=== PATIENT | male | born 1940 | race African-American/Black ===

== ENCOUNTER 2017-07-08 21:52 | Emergency (ER) | payer MEDICARE, OTHER ==
[~2017-07-08] VITALS: Ht 165.1 cm; Wt 95.3 kg
[~2017-07-08 21:52] MED LIST: ADALAT CC60 MG PO; ALLOPURINOL; ALLOPURINOL 30300 M1 PO; AMITIZA8 MCG PO; AMLODIPINE BESY10 MG PO; AMOXICILLIN875 MG PO; CEFDINIR300 MG PO; CLEOCIN HCL300 MG PO; COLCHICINE 0.60.6 M1 PO; COLCHICINE0.6 MG PO; COLCRYS 0.6 MG0.6 MG PO; COZAAR 50 MG TA50 M1 PO; DILAUDID 4 MG TA4 M1 PO; DILAUDID2 M1 PO; FLEXERIL PO; HYCET 7.5 MG-3473 ML PO; HYDROCODON-ACE1 EAC2 PO; HYDROCODONE-APA1 TA1 PO; HYDROCODONE-APA10 ML PO; IBUPROFEN 800800 M1 PO; INDOMETHACIN 2525 MG PO; INDOMETHACIN 5050 MG PO; INDOMETHACIN SR75 M1 PO; KEFLEX500 MG PO; KLOR-CON 1010 MEQ PO; LASIX 40 MG TAB40 M2 PO; LIDODERM 5%1 PATC1 TRANSDERM; LISINOPRIL-HCT1 EACH PO; MEDROL DOSPAK21 TAB PO; MEDROLDOSEPACK PO; NASONEX17 GM NS; NEURONTIN 300300 M1 PO; NORCO 10-325 T1 EACH PO; NORCO 5-325 TA1 EACH PO; NORFLEX100 MG PO; OXYCODONE HCL 55 MG PO; OXYCODONE-APAP1 EAC6 PO; PERCOCET 5-3251 EACH PO; PREDNISONE 10 M10 M1 PO; PREDNISONE 10 M10 MG PO; PREDNISONE 20 M20 M1 PO; PREDNISONE 20 M20 MG PO; PRINZIDE 20-121 EACH PO; TAMSULOSIN HCL0.4 M1 PO; ULORIC40 MG PO; ULORIC80 MG PO; ZESTRIL20 MG PO; [UNRECOGNIZED DRUG - OTHER]
[2017-07-08] MEDS ORDERED: LISINOPRIL20 MG PO (22:14)
[2017-07-08] MEDS ORDERED: PROTONIX40 M1 PO (22:15)
[2017-07-08 22:33] LABS: ABSOLUTE NEUTROPHILS 5.8 thou/uL (1.4-8.2); BASOPHILS 0.5 % (0.0-2.0); EOSINOPHILS 3.1 % (0.0-3.0); HEMATOCRIT 35.8 % (42.0-52.0); HEMOGLOBIN 12.1 gm/dL (14.0-18.0); LYMPHOCYTES 21.7 % (24.0-44.0); MCH 28.5 pg (26.0-34.0); MCHC 33.8 g/dL (28.0-37.0); MCV 84.3 fL (80.0-100.0); MONOCYTES 8.9 % (1.0-8.0); PLATELET COUNT 270 thou/uL (150-400); POLYS 65.8 % (36.0-66.0); RBC 4.24 mil/uL (4.50-6.00); RDW 15.4 % (10.5-14.5); WBC 8.9 thou/uL (4.0-11.0)
[2017-07-08 22:40] LABS: CALCIUM 9.3 mg/dL (8.5-10.1); CREATININE 1.4 mg/dL (0.7-1.3); POTASSIUM 3.8 mmol/L (3.5-5.1)
[2017-07-08 22:46] LABS: ALBUMIN 3.6 g/dL (3.4-5.0); TOTAL BILIRUBIN 0.7 mg/dL (<0.1-1.0); TOTAL PROTEIN 8.4 g/dL (6.4-8.2); URIC ACID* 7.6 mg/dL (2.6-7.2)
[2017-07-08] MEDS ORDERED: INDOMETHACIN 2525 MG PO (22:58)
[2017-07-08] MEDS ORDERED: HYDROCODONE-AP1 EAC6 PO (22:58)
[2017-07-08] MEDS ORDERED: PREDNISONE 20 M20 MG PO (22:58)
[2017-07-08] MEDS ORDERED: COLCHICINE0.6 MG PO (22:58)
[2017-07-08 23:33] VITALS: BP 163/82
[2017-12-23] MEDS ORDERED: PREDNISONE 20 M20 MG PO (14:14)
[2017-12-23] MEDS ORDERED: NORCO 5-325 TA1 EACH PO (14:14)
[2017-12-23] MEDS ORDERED: COLCHICINE0.6 MG PO (14:14)
[2017-12-23] MEDS ORDERED: SENNA8.6 MG PO (14:14)
== END 2017-07-08 23:34 | disposition home or self-care (01) ==
LOC: ER 21:52
PROVIDERS: Emergency Medicine
DX: M18.9 Osteoarthritis of first carpometacarpal joint, unspecified (principal); M10.9 Gout, unspecified; G89.29 Other chronic pain; M54.9 Dorsalgia, unspecified; I10 Essential (primary) hypertension

== ENCOUNTER 2017-07-25 17:39 | Emergency (ER) | payer MEDICARE ==
[~2017-07-25] VITALS: Ht 165.1 cm; Wt 99.8 kg
[~2017-07-25 17:39] MED LIST changes: +HYDROCODONE-AP1 EAC6 PO; +LISINOPRIL20 MG PO; +PROTONIX40 M1 PO
[2017-07-25 19:40] VITALS: BP 164/71
== END 2017-07-25 19:41 | disposition home or self-care (01) ==
LOC: ER 17:39
DX: M19.90 Unspecified osteoarthritis, unspecified site (principal); M25.562 Pain in left knee; M54.9 Dorsalgia, unspecified; M10.9 Gout, unspecified; I10 Essential (primary) hypertension

== ENCOUNTER 2017-08-12 16:43 | Emergency (ER) | payer MEDICARE ==
[~2017-08-12] VITALS: Ht 165.1 cm; Wt 99.8 kg
[2017-08-12] MEDS ORDERED: ALLOPURINOL 10100 M1 PO (17:13)
[2017-08-12 18:05] LABS: HEMATOCRIT 34.2 % (42.0-52.0); HEMOGLOBIN 11.4 gm/dL (14.0-18.0); MCH 27.9 pg (26.0-34.0); MCHC 33.2 g/dL (28.0-37.0); RBC 4.07 mil/uL (4.50-6.00); WBC 11.2 thou/uL (4.0-11.0)
[2017-08-12 18:24] LABS: CALCIUM 8.9 mg/dL (8.5-10.1); CREATININE 1.4 mg/dL (0.7-1.3); POTASSIUM 3.2 mmol/L (3.5-5.1)
[2017-08-12 18:30] LABS: ALBUMIN 3.3 g/dL (3.4-5.0); TOTAL BILIRUBIN 0.7 mg/dL (<0.1-1.0); TOTAL PROTEIN 8.2 g/dL (6.4-8.2); URIC ACID* 3.2 mg/dL (2.6-7.2)
[2017-08-12] MEDS ORDERED: INDOMETHACIN 2525 MG PO (20:53)
[2017-08-12] MEDS ORDERED: PREDNISONE 20 M20 MG PO (20:53)
[2017-08-12] MEDS ORDERED: COLCHICINE0.6 MG PO (20:53)
[2017-08-12] MEDS ORDERED: NORCO 10-325 T1 EACH PO (20:53)
[2017-08-12 21:04] VITALS: BP 198/89
== END 2017-08-12 21:08 | disposition home or self-care (01) ==
LOC: ER 16:43
PROVIDERS: Physician Assistant
DX: M10.032 Idiopathic gout, left wrist (principal); I16.0 Hypertensive urgency; Z96.698 Presence of other orthopedic joint implants

== ENCOUNTER 2017-09-29 19:01 | Emergency (ER) | payer MEDICARE ==
[~2017-09-29] VITALS: Ht 167.6 cm; Wt 99.8 kg
[~2017-09-29 19:01] MED LIST changes: +ALLOPURINOL 10100 M1 PO
[2017-09-29] MEDS ORDERED: NORCO 5-325 TA1 EACH PO (21:20)
[2017-09-29 22:01] VITALS: BP 142/76
== END 2017-09-29 22:00 | disposition home or self-care (01) ==
LOC: ER 19:01
DX: M19.011 Primary osteoarthritis, right shoulder (principal); M75.101 Unspecified rotator cuff tear or rupture of right shoulder, not specified as traumatic; R60.0 Localized edema; M10.9 Gout, unspecified; I10 Essential (primary) hypertension; G51.0 Bell's palsy

== ENCOUNTER → 2017-10-15 | Outpatient (CLI) | payer MEDICARE ==
--- NOTE | ~2017-10-15 | 2DMMODE ---
[facility] [employer] [place] [address] 2 D/M-MODE ECHOCARDIOGRAM Name: FREDRICKKI Room #: REG Haley#: [id number] Admission: 10/15/17 Attend Phys: Corey Ortega Discharge: Date of : 44 Date of Service: 10/15/17 1114 Report #: [id number] THIS REPORT FOR: //name// APPROVED REPORT Study performed: 10/15/2017 10:23:23 EXAM: Comprehensive 2D, Doppler, and color-flow Echocardiogram Patient Location: Out-Patient Status: routine BSA: 2.12 HR: 69 bpm BP: 192/102 mmHg Rhythm: NSR/Arrhythmia Other Information Study Quality: Good Indications Murmur, HTN 2D Dimensions RVDd: 40.53 mm LVEF(%): 61.62 (>50%) IVSd: 13.00 (7-11mm) LVOT Diam: 19.75 (18-24mm) LVDd: 48.72 mm PWd: 13.15 (7-11mm) Ascending Ao: 35.45 (22-36mm) LVDs: 32.56 (25-40mm) Aortic Root: 28.85 mm Urban's LVEF: 61.62 % Volumes Left Atrial Volume (Systole) Single Plane 4CH: 91.39 mL Single Plane 2CH: 90.32 mL Aortic Valve AoV Peak Jasper.: 2.43 m/s AO Peak Gr.: 23.56 mmHg LVOT Max P.79 mmHg AO Mean Gr.: 13.14 mmHg AO V2 Mean: 1.74 m/s LVOT Max V: 1.20 m/s AO V2 VTI: 55.98 cm ANDREZ Vmax: 1.52 cm2 Mitral Valve E/A Ratio: 1.2 [facility] [employer] [place] [address] 2 D/M-MODE ECHOCARDIOGRAM Name: KI ALCALA Room #: REG [facility] [id number] Admission: 10/15/17 Attend Phys: Corey Ortega Discharge: Date of : 44 Date of Service: 10/15/17 1114 Report #: [id number] MV Decel. Time: 261.93 ms MV E Max Jasper.: 1.45 m/s MV A Jasper.: 1.20 m/s MV PHT: 75.96 ms IVRT: 93.43 ms Pulmonary Valve PV Peak Jasper.: 0.90 m/s PV Peak Gr.: 3.22 mmHg Pulmonary Vein P Vein S: 0.52 m/s P Vein D: 0.42 m/s P Vein S/D Ratio: 1.24 Tricuspid Valve TR Peak Jasper.: 2.87 m/s RAP Estimate: 5.00 mmHg TR Peak Gr.: 32.85 mmHg PA Pressure: 38.00 mmHg Left Ventricle The left ventricle is normal size. There is normal LV segmental wall motion. Moderate concentric left ventricular hypertrophy. Left ventricular systolic function is normal. LVEF is 55-60%. Moderate diastolic dysfunction is present (pseudonormal filling). Right Ventricle The right ventricle is normal size. The right ventricular systolic function is normal. Atria Left atrium is moderately dilated. Right atrium is mildly dilated. Aortic Valve Aortic valve is moderately calcified. Trace aortic regurgitation. There is mild valvular aortic stenosis. Calculated aortic valve area is 1.5 cm2 with maximum pressure gradient of 24 mmHg and mean pressure gradient of 13mmHg. Mitral Valve Mitral valve leaflets are mildly thickened. Mild mitral annular calcification. Mild mitral regurgitation. Tricuspid Valve The tricuspid valve is normal in structure. Trace to mild tricuspid regurgitation. Estimated PAP is 35-40mmHg. [address] [address] 2 D/M-MODE ECHOCARDIOGRAM Name: KI ALCALA Room #: REG [facility]#: [id number] Admission: 10/15/17 Attend Phys: Corey Ortega Discharge: Date of : 44 Date of Service: 10/15/17 1114 Report #: [id number] Pulmonic Valve The pulmonary valve is normal in structure. Trace pulmonic regurgitation. Great Vessels The aortic root is normal in size. The ascending aorta is normal in size. IVC is normal in size and collapses >50% with inspiration. Pericardium There is no pericardial effusion. <Conclusion> The left ventricle is normal size. LVEF is 55-60%. Left atrium is moderately dilated. Right atrium is mildly dilated. Aortic valve is moderately calcified. Trace aortic regurgitation. There is mild valvular aortic stenosis. Calculated aortic valve area is 1.5 cm2 with maximum pressure gradient of 24 mmHg and mean pressure gradient of 13mmHg. Mitral valve leaflets are mildly thickened. Mild mitral annular calcification. Mild mitral regurgitation. The tricuspid valve is normal in structure. Trace to mild tricuspid regurgitation. Estimated PAP is 35-40mmHg. There is no pericardial effusion. <ELECTRONICALLY SIGNED> By: Corey Edwards MD 10/15/17 1114 1114 1114 Corey Edwards MD /INF
== END ==
LOC: CV 07:31
DX: I08.1 Rheumatic disorders of both mitral and tricuspid valves (principal); I70.0 Atherosclerosis of aorta; I10 Essential (primary) hypertension; I70.8 Atherosclerosis of other arteries

== ENCOUNTER → 2017-10-27 | Outpatient (CLI) | payer MEDICARE | LOC: ULTRA 09:08 | DX: M79.89 Other specified soft tissue disorders (principal); M79.662 Pain in left lower leg; M79.661 Pain in right lower leg ==

== ENCOUNTER 2017-11-12 09:36 | Emergency (ER) | payer MEDICARE ==
[~2017-11-12] VITALS: Ht 165.1 cm; Wt 104.3 kg
--- NOTE | ~2017-11-12 | EKG ---
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 : 1940 Requested By: Rubina Evangelista Order Number: [id number] MD: Gilberto Cabral Measurements Intervals [place] Rate: 74 P: -5 NE: 189 QRS: -25 QRSD: 82 T: 144 QT: 373 QTc: 414 Interpretive Statements Sinus rhythm Abnormal R-wave progression, early transition LVH with secondary repolarization abnormality Compared to ECG 11/25/2015 12:50:22 Left ventricular hypertrophy now present Atrial premature complex(es) no longer present Electronically Signed On 11-12-2017 16:14:12 CDT by Gilbreto Cabral [email or web address] <ELECTRONICALLY SIGNED> By: Gilberto Cabral MD, [facility] 11/12/17 1614 0941 0941 Gilberto Cabral MD, [facility] /EPI
[2017-11-12 10:03] LABS: ABSOLUTE NEUTROPHILS 5.1 thou/uL (1.4-8.2); BASOPHILS 0.3 % (0.0-2.0); EOSINOPHILS 3.3 % (0.0-3.0); HEMATOCRIT 40.1 % (42.0-52.0); HEMOGLOBIN 13.5 gm/dL (14.0-18.0); LYMPHOCYTES 23.9 % (24.0-44.0); MCH 28.5 pg (26.0-34.0); MCHC 33.6 g/dL (28.0-37.0); MONOCYTES 6.2 % (1.0-8.0); PLATELET COUNT 276 thou/uL (150-400); POLYS 66.3 % (36.0-66.0); RBC 4.72 mil/uL (4.50-6.00); RDW 15.4 % (10.5-14.5); WBC 7.7 thou/uL (4.0-11.0)
[2017-11-12 10:12] LABS: ANION GAP 8 mmol/L (7-16); BUN 14 mg/dL (7-18); CALCIUM 8.8 mg/dL (8.5-10.1); CHLORIDE 103 mmol/L (98-107); CO2 27 mmol/L (21-32); CREATININE 1.4 mg/dL (0.7-1.3); GLUCOSE 114 mg/dL (74-106); POTASSIUM 3.9 mmol/L (3.5-5.1); SODIUM 138 mmol/L (136-145)
[2017-11-12 10:21] LABS: ALBUMIN 3.6 g/dL (3.4-5.0); SGOT 18 U/L (15-37); SGPT 18 U/L (30-65); TOTAL BILIRUBIN 0.6 mg/dL (<0.1-1.0); TOTAL PROTEIN 8.3 g/dL (6.4-8.2); TROPONIN-I <0.06 ng/mL (<0.06)
[2017-11-12] MEDS ORDERED: NORCO 7.5-3251 EACH PO (10:28)
[2017-11-12] MEDS ORDERED: NABUMETONE 750750 M1 PO (10:30)
[2017-11-12] MEDS ORDERED: ULORIC40 MG PO (10:30)
[2017-11-12] MEDS ORDERED: FLOMAX0.4 MG PO (10:30)
[2017-11-12 12:02] VITALS: BP 142/75
== END 2017-11-12 12:08 | disposition home or self-care (01) ==
LOC: ER 09:36
PROVIDERS: Student in an Organized Health Care Education/Training Program
DX: I10 Essential (primary) hypertension (principal); R51 Headache; R11.0 Nausea; M10.9 Gout, unspecified

== ENCOUNTER → 2017-11-18 | Outpatient (CLI) | payer MEDICARE ==
[~2017-11-18] MED LIST changes: +FLOMAX0.4 MG PO; +NABUMETONE 750750 M1 PO; +NORCO 7.5-3251 EACH PO; +TOPROL XL100 MG PO
== END ==
LOC: ULTRA 09:21
DX: I10 Essential (primary) hypertension (principal); Z87.891 Personal history of nicotine dependence; Z88.5 Allergy status to narcotic agent

== ENCOUNTER 2017-11-21 23:39 | Inpatient (IN) | payer MEDICARE ==
[~2017-11-21] VITALS: Ht 165.1 cm; Wt 100.0 kg
--- NOTE | ~2017-11-21 | EKG ---
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: : 1940 Requested By: Chucho Weems Order Number: [id number] MD: Jose Griffiths Measurements Intervals [place] Rate: 59 P: -62 DE: 164 QRS: -16 QRSD: 80 T: 248 QT: 461 QTc: 457 Interpretive Statements Ectopic atrial rhythm Abnormal R-wave progression, early transition LVH with secondary repolarization abnormality Compared to ECG 11/22/2017 00:02:31 Ectopic atrial rhythm now present Sinus rhythm no longer present Electronically Signed On 11-23-2017 11:02:07 CDT by Jose Griffiths [email or web address] <ELECTRONICALLY SIGNED> By: Jose Griffiths MD 11/23/17 1102 1141 1141 Jose Griffiths MD /[facility]
--- NOTE | ~2017-11-21 | HC ---
[facility] [place] [address] CONSULTATION Name: KI ALCALA JR Room #: 216-P ADM IN M.R.#: [id number] Admission: 11/22/17 Attend Phys: Ziyad Ram MD Discharge: Date of : 44 Report #: [id number] THIS REPORT FOR: //name// CC: Ziyad Gandhi DATE OF SERVICE: 11/22/2017 INDICATION: Dyspnea. HISTORY OF PRESENT ILLNESS: This is a 77-year-old gentleman with a history of hypertension, mild aortic stenosis and mild MR, who has been experiencing increasing blood pressure for the past several weeks. He was in the ER a few days ago with this problem. He was told to double up on the dose of lisinopril and Toprol-XL. During that time, he denies any episodes of chest pains, shortness of breath or lightheadedness. He did undergo an evaluation with Dr. Audie Edwards. An echo revealed normal LV systolic function, mild aortic stenosis and mild MR. Over the past day or so, he has noticed increasing dyspnea and swelling of his legs. He also developed orthopnea. He denies any history of chest pains, palpitations or lightheadedness. PAST MEDICAL HISTORY: Echo from September 2017 reveals normal LV systolic function, mild and mild MR. Renal ultrasound in October 2017 reveals normal kidneys, unable to rule out renal artery stenosis. ALLERGIES: None. MEDICATIONS: At home include Toprol 100 mg daily, lisinopril 80 mg, allopurinol, Relafen, Flomax, Neurontin. SOCIAL HISTORY: Denies tobacco use. FAMILY HISTORY: Negative for premature CAD. REVIEW OF SYSTEMS: A full 10-point review of systems performed. Only the pertinent positives and negatives are described in the HPI. PHYSICAL EXAMINATION: VITAL SIGNS: Initial blood pressure was 226/100, presently at 145/69 mmHg, heart rate is 60 beats per minute. GENERAL APPEARANCE: An elderly appearing male in no acute respiratory distress. HEENT: Normocephalic, atraumatic. Sclerae are anicteric. NECK: Supple. LUNGS: Bibasilar crackles. CARDIAC: Regular rate and rhythm, 2/6 systolic murmur. ABDOMEN: Soft, nontender. [facility] [address] [place] [address] CONSULTATION Name: KI ALCALA Room #: 216-[facility] IN M.R.#: [id number] Admission: 11/22/17 Attend Phys: Ziyad Ram MD Discharge: Date of : 44 Report #: [id number] EXTREMITIES: No cyanosis, positive edema. NEUROLOGIC: Alert and oriented x 3 EKG reveals sinus rhythm, LVH with repolarization abnormality. LABORATORY VALUES: White count 11.7, hemoglobin 12.2. Sodium is 136, creatinine is 1.4. Troponin is negative x 1. Chest x-ray is suggestive for congestive heart failure. ASSESSMENT: 1. Congestive heart failure, acute diastolic heart failure. May have been precipitated by uncontrolled hypertension. His symptoms have partially improved with one dose of Lasix given in the ER. He will continue with intravenous Lasix, follow strict I's and O's. 3. Hypertensive urgency, blood pressure has improved. Would change the beta zi to carvedilol. He will continue on lisinopril 40 mg daily. His blood pressure has improved with Lasix therapy. A renal ultrasound was unable to rule out renal artery stenosis. 4. Renal insufficiency, follow creatinine levels. 5. Mild aortic stenosis/mild mitral regurgitation, appears to be stable at this time. His symptoms were precipitated by uncontrolled hypertension. 6. Edema, should improve with Lasix therapy. In addition, a low salt diet has been discussed. <ELECTRONICALLY SIGNED> By: Jose Griffiths MD 11/23/17 0019 0948 1929 Jose Griffiths MD /nt
--- NOTE | ~2017-11-21 | EKG ---
[place] [address] [address] 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 : 1940 Requested By: Precious Childs Order Number: [id number] MD: Jose Griffiths Measurements Intervals [place] Rate: 58 P: -36 MI: 183 QRS: -16 QRSD: 82 T: 149 QT: 417 QTc: 410 Interpretive Statements Sinus rhythm Abnormal R-wave progression, early transition LVH with secondary repolarization abnormality Compared to ECG 11/12/2017 09:41:23 No significant changes Electronically Signed On 11-22-2017 10:15:00 CDT by Jose Griffiths [email or web address] <ELECTRONICALLY SIGNED> By: Jose Griffiths MD 11/22/17 1015 0002 0002 Jose Griffiths MD /[facility]ANEL
[~2017-11-21 23:39] MED LIST changes: -TOPROL XL100 MG PO
[2017-11-21 23:46] VITALS: BP 226/113
[2017-11-22] VITALS (7 sets, daily range): BP systolic 120–205; BP diastolic 62–90
[2017-11-22] MEDS ORDERED: TOPROL XL100 MG PO (00:09)
[2017-11-22 00:50] LABS: ABSOLUTE NEUTROPHILS 8.2 thou/uL (1.4-8.2); BASOPHILS 0.6 % (0.0-2.0); EOSINOPHILS 4.3 % (0.0-3.0); HEMATOCRIT 36.6 % (42.0-52.0); HEMOGLOBIN 12.2 gm/dL (14.0-18.0); LYMPHOCYTES 19.1 % (24.0-44.0); MCH 28.5 pg (26.0-34.0); MCHC 33.3 g/dL (28.0-37.0); MCV 85.7 fL (80.0-100.0); PLATELET COUNT 249 thou/uL (150-400); RBC 4.28 mil/uL (4.50-6.00); RDW 15.3 % (10.5-14.5); WBC 11.7 thou/uL (4.0-11.0)
[2017-11-22 00:53] LABS: ANION GAP 9 mmol/L (7-16); BUN 13 mg/dL (7-18); CALCIUM 8.7 mg/dL (8.5-10.1); CHLORIDE 103 mmol/L (98-107); CO2 24 mmol/L (21-32); CREATININE 1.4 mg/dL (0.7-1.3); GLUCOSE 122 mg/dL (74-106); POTASSIUM 3.4 mmol/L (3.5-5.1); SODIUM 136 mmol/L (136-145)
[2017-11-22 01:02] LABS: TROPONIN-I <0.06 ng/mL (<0.06)
[2017-11-22 14:26] LABS: ALBUMIN 2.9 g/dL (3.4-5.0); CALCIUM 8.3 mg/dL (8.5-10.1); CREATININE 1.6 mg/dL (0.7-1.3); MAGNESIUM 1.7 mg/dL (1.8-2.4); PHOSPHORUS 3.8 mg/dL (2.5-4.9); POTASSIUM 3.5 mmol/L (3.5-5.1); URIC ACID* 4.8 mg/dL (2.6-7.2)
[2017-11-23 03:33] VITALS: BP 167/78
[2017-11-23 05:12] LABS: URINE BILIRUBIN NEGATIVE (Negative); URINE BLOOD NEGATIVE (Negative); URINE CLARITY CLEAR; URINE COLOR YELLOW; URINE GLUCOSE-RANDOM* NEGATIVE (Negative); URINE KETONES NEGATIVE (Negative); URINE LEUKOCYTES-REFLEX NEGATIVE (Negative); URINE NITRITE-REFLEX NEGATIVE (Negative); URINE PROTEIN (DIPSTICK) NEGATIVE (Negative); URINE SPECIFIC GRAVITY 1.015 (1.005-1.035); URINE UROBILINOGEN 0.2 E.U./dl (0.2-1.0)
[2017-11-23 07:45] VITALS: BP 157/77
[2017-11-23 11:34] LABS: CALCIUM 8.5 mg/dL (8.5-10.1); CREATININE 1.6 mg/dL (0.7-1.3); POTASSIUM 3.2 mmol/L (3.5-5.1)
[2017-11-23 11:50] VITALS: BP 146/72
[2017-11-23 16:00] VITALS: BP 168/81
[2017-11-23 19:43] VITALS: BP 170/76
[2017-11-24 03:25] VITALS: BP 189/97
[2017-11-24 04:27] LABS: ALBUMIN 2.8 g/dL (3.4-5.0); CALCIUM 8.3 mg/dL (8.5-10.1); CREATININE 1.4 mg/dL (0.7-1.3); MAGNESIUM 2.1 mg/dL (1.8-2.4); TOTAL BILIRUBIN 0.5 mg/dL (<0.1-1.0)
[2017-11-24 04:40] LABS: POTASSIUM 4.2 mmol/L (3.5-5.1)
[2017-11-24 04:46] LABS: HEMOGLOBIN 11.9 gm/dL (14.0-18.0); MCH 28.7 pg (26.0-34.0); MCHC 33.2 g/dL (28.0-37.0); MCV 86.4 fL (80.0-100.0); RBC 4.16 mil/uL (4.50-6.00); RDW 15.8 % (10.5-14.5); WBC 8.7 thou/uL (4.0-11.0)
[2017-11-24 07:48] VITALS: BP 206/85
[2017-11-24 11:37] VITALS: BP 142/97
[2017-11-24 12:41] LABS: TSH 1.41 uIU/mL (0.358-3.740)
[2017-11-24 16:24] VITALS: BP 173/80
[2017-11-24 19:40] VITALS: BP 154/65
[2017-11-25] VITALS (8 sets, daily range): BP systolic 138–161; BP diastolic 64–85
[2017-11-25 04:02] LABS: ALBUMIN 2.8 g/dL (3.4-5.0); CALCIUM 8.4 mg/dL (8.5-10.1); CREATININE 1.5 mg/dL (0.7-1.3); PHOSPHORUS 4.1 mg/dL (2.5-4.9)
[2017-11-25 05:02] LABS: HEMATOCRIT 34.8 % (42.0-52.0); HEMOGLOBIN 11.8 gm/dL (14.0-18.0); MCH 28.9 pg (26.0-34.0); MCV 85.1 fL (80.0-100.0); RBC 4.09 mil/uL (4.50-6.00); RDW 15.6 % (10.5-14.5); WBC 9.3 thou/uL (4.0-11.0)
[2017-11-25] MEDS ORDERED: BACLOFEN 10MG T10 MG PO (09:07)
[2017-11-25] MEDS ORDERED: HYDRALAZINE 2525 MG PO (09:07)
[2017-11-25] MEDS ORDERED: BENAZEPRIL HCL40 MG PO (09:08)
[2017-11-25] MEDS ORDERED: CARVEDILOL12.5 MG PO (09:08)
[2017-11-25] MEDS ORDERED: NEURONTIN 400400 M1 PO (09:09)
[2017-11-25] MEDS ORDERED: LASIX 40 MG TAB40 M2 PO (09:19)
[2017-11-26 04:14] VITALS: BP 108/40
[2017-11-26 08:16] VITALS: BP 192/79
[2017-11-26 08:29] VITALS: BP 189/87
[2017-11-26 11:43] VITALS: BP 122/78
[2017-11-26 13:11] VITALS: BP 122/78
== END 2017-11-26 14:48 | disposition home health service (06) | DRG 291 ==
LOC: ER 23:39 → 2N 11-22 02:36 → EROBS 11-22 02:36 → 2N 11-22 03:11 → ENTRNSPT 11-26 13:02 → EDTRNSPTSTS 11-26 13:03 → 2N 11-26 14:48
PROVIDERS: Emergency Medicine; Hospitalist; Internal Medicine Cardiovascular Disease
DX: I13.0 Hypertensive heart and chronic kidney disease with heart failure and stage 1 through stage 4 chronic kidney disease, or unspecified chronic kidney disease (principal); N17.0 Acute kidney failure with tubular necrosis; I50.31 Acute diastolic (congestive) heart failure; E43 Unspecified severe protein-calorie malnutrition; I16.1 Hypertensive emergency; I16.0 Hypertensive urgency; I08.0 Rheumatic disorders of both mitral and aortic valves; E87.6 Hypokalemia; M10.9 Gout, unspecified; G51.0 Bell's palsy; E66.01 Morbid (severe) obesity due to excess calories; Z68.36 Body mass index [BMI] 36.0-36.9, adult; Z87.81 Personal history of (healed) traumatic fracture; Z79.899 Other long term (current) drug therapy; N18.3 Chronic kidney disease, stage 3 (moderate)
CPT/HCPCS: 10081

== ENCOUNTER 2017-11-28 15:12 | Emergency (ER) | payer MEDICARE ==
[~2017-11-28] VITALS: Ht 177.8 cm; Wt 99.8 kg
--- NOTE | ~2017-11-28 | EKG ---
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: [facility] : 1940 Requested By: Shaw Huntley Order Number: [id number] MD: Gilberto Cabral Measurements Intervals [place] Rate: 67 P: -8 RI: 195 QRS: -20 QRSD: 76 T: 150 QT: 397 QTc: 419 Interpretive Statements Sinus rhythm Probable left atrial enlargement LVH with secondary repolarization abnormality Compared to ECG 11/22/2017 11:41:01 Ectopic atrial rhythm no longer present Electronically Signed On 11-30-2017 15:16:54 CDT by Gilberto Cabral [email or web address] <ELECTRONICALLY SIGNED> By: Gilberto Cabral MD, [facility] 11/30/17 1516 1635 1635 Gilberto Cabral MD, [facility] /EPI
[~2017-11-28 15:12] MED LIST changes: +BACLOFEN 10MG T10 MG PO; +BENAZEPRIL HCL40 MG PO; +CARVEDILOL12.5 MG PO; +HYDRALAZINE 2525 MG PO; +NEURONTIN 400400 M1 PO; +TOPROL XL100 MG PO
[2017-11-28 16:41] LABS: ABSOLUTE NEUTROPHILS 7.1 thou/uL (1.4-8.2); BASOPHILS 0.7 % (0.0-2.0); HEMATOCRIT 36.1 % (42.0-52.0); HEMOGLOBIN 12.3 gm/dL (14.0-18.0); MCH 28.7 pg (26.0-34.0); MCHC 33.9 g/dL (28.0-37.0); MCV 84.6 fL (80.0-100.0); MONOCYTES 10.2 % (1.0-8.0); PLATELET COUNT 321 thou/uL (150-400); POLYS 70.1 % (36.0-66.0); RBC 4.27 mil/uL (4.50-6.00); RDW 15.8 % (10.5-14.5); WBC 10.1 thou/uL (4.0-11.0)
[2017-11-28 16:49] LABS: ANION GAP 8 mmol/L (7-16); BUN 35 mg/dL (7-18); CALCIUM 8.5 mg/dL (8.5-10.1); CHLORIDE 105 mmol/L (98-107); CO2 26 mmol/L (21-32); CREATININE 2.1 mg/dL (0.7-1.3); GLUCOSE 103 mg/dL (74-106); POTASSIUM 4.6 mmol/L (3.5-5.1); SODIUM 139 mmol/L (136-145)
[2017-11-28 16:58] LABS: TROPONIN-I <0.06 ng/mL (<0.06)
[2017-11-28 17:33] LABS: URINE BILIRUBIN NEGATIVE (Negative); URINE BLOOD NEGATIVE (Negative); URINE CLARITY CLEAR; URINE COLOR YELLOW; URINE GLUCOSE-RANDOM* NEGATIVE (Negative); URINE KETONES NEGATIVE (Negative); URINE LEUKOCYTES-REFLEX NEGATIVE (Negative); URINE NITRITE-REFLEX NEGATIVE (Negative); URINE PROTEIN (DIPSTICK) NEGATIVE (Negative); URINE SPECIFIC GRAVITY 1.015 (1.005-1.035); URINE UROBILINOGEN 0.2 E.U./dl (0.2-1.0)
[2017-11-28 19:13] VITALS: BP 158/76
== END 2017-11-28 20:07 | disposition home or self-care (01) ==
LOC: ER 15:12
PROVIDERS: Physician Assistant
DX: R07.89 Other chest pain (principal); T42.8X5A Adverse effect of antiparkinsonism drugs and other central muscle-tone depressants, initial encounter; M25.562 Pain in left knee; R60.0 Localized edema; M10.9 Gout, unspecified; I10 Essential (primary) hypertension; E66.9 Obesity, unspecified; Z96.698 Presence of other orthopedic joint implants; Z88.5 Allergy status to narcotic agent; Z68.31 Body mass index [BMI] 31.0-31.9, adult; Y92.89 Other specified places as the place of occurrence of the external cause

== ENCOUNTER 2017-12-01 01:03 | Inpatient (IN) | payer MEDICARE ==
[~2017-12-01] VITALS: Ht 165.1 cm; Wt 99.3 kg
[2017-12-01] VITALS (9 sets, daily range): BP systolic 106–168; BP diastolic 54–80
--- NOTE | ~2017-12-01 | PATH ---
[facility] [address] [place] [address] PATHOLOGY RPT PROCEDURE Name: KI PRATT Room #: 219-P DIS IN M.R.#: [id number] Admission: 12/01/17 Date of : 44 Discharge: 12/04/17 Report #: [id number] Path Case #: [id number] [facility] Accession Number: [id number] . 01 Material submitted: . PART A: BIOPSY THICKENED FOLD AT ILEOCECAL VALVE PART B: POLYP AT RECTUM . 01 Clinical history: . Pre-Op DX: Rectal bleeding Post-Op DX: Diverticulosis, rectal polyp . 02 Diagnosis: A. Large intestinal mucosa, thickened fold at ileocecal valve, endoscopic biopsy: - Compatible with a hyperplastic polyp and a lymphoid aggregate. - Negative for dysplasia. . B. Polyp, at rectum, endoscopic biopsy: - Inflammatory polyp showing reactive hyperplastic glands as well as a background of moderately inflamed stroma. - Negative for active cryptitis. - Negative for dysplasia or malignancy. (IUV/db; 12/04/17) LBQ/12/04/2017 . 02 Electronically signed: . Francheska Soler MD, Pathologist NPI- [id number] . 01 Gross description: . A. Received in formalin labeled "Ki Pratt Jr, BX thickened fold ileocecal valve," are 3 segments of wahl soft tissue measuring 0.8 x 0.6 x 0.2 cm in aggregate dimensions and ranging from 0.2 to 0.3 cm in maximum dimension. The specimen is submitted entirely in cassette A1. . B. Received in formalin labeled "Ki Pratt Jr, polyp at rectum," is a single segment of wahl soft tissue measuring 0.6 cm in maximum dimension. The specimen is entirely submitted in cassette B1. (TSD; 12/03/2017) TOB/TOB . 02 Pathologist provided ICD-10: K63.5, K51.40, K62.89 . 02 CPT . 734666, [id number] [address] [address] PATHOLOGY RPT PROCEDURE Name: KI PRATT JR Room #: 219-P [facility] IN M.R.#: [id number] Admission: 12/01/17 Date of : 44 Discharge: 12/04/17 Report #: [id number] Path Case #: [id number] Performed at: [address], [place], [place] [id number] MD Daniel Gonsalez MD Phone: [phone] Performed at: [address] [id number] MD Francheska Soler MD Phone: [phone]
--- NOTE | ~2017-12-01 | EKG ---
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 : 1940 Requested By: Lorenzo Herring Order Number: [id number] MD: Gilberto Cabral Measurements Intervals [place] Rate: 60 P: 23 SC: 171 QRS: -15 QRSD: 83 T: 136 QT: 386 QTc: 386 Interpretive Statements Sinus rhythm Probable left atrial enlargement LVH with secondary repolarization abnormality Compared to ECG 11/28/2017 16:35:00 No significant changes Electronically Signed On 12-01-2017 9:11:47 CDT by Gilberto Cabral [email or web address] <ELECTRONICALLY SIGNED> By: Gilberto Cabral MD, [facility] 12/01/17 0911 1 1 Gilberto Cabral MD, [facility] /EPI
--- NOTE | ~2017-12-01 | HC ---
[facility] [address] [place] [address] CONSULTATION Name: KI ALCALA JR Room #: 219-P ADM IN M.R.#: [id number] Admission: 12/01/17 Attend Phys: Ziyad Ram MD Discharge: Date of : 44 Report #: [id number] THIS REPORT FOR: //name// CC: Ziyad Gandhi DATE OF SERVICE: 12/03/2017 HISTORY OF PRESENT ILLNESS: The patient is a 77-year-old man who was readmitted to [facility] through the Emergency Room on 12/01/2017. He had been previously hospitalized a week before, when he had symptoms of diastolic heart failure, hypertension, hypokalemia and low magnesium level. The patient was a passenger in a car. He had been to several stores. 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 He was near his home when he had an episode of loss of consciousness. The person driving says that he just simply slumped over and was unresponsive, but he did have a jerking of his muscles. This persisted for a number of minutes. He still was not able to get up and walk to his house. He required help and he states that he did not really understand what was going on; his thinking was not clear for several hours. He states that he has never had a seizure before and he has never had a faint before, although he does get lightheaded from time to time when he stands up. The patient was admitted. CAT scan of the head was nonspecific. MRI of the brain showed extensive white matter changes, but no stroke or mass. At the present time, the patient is alert and oriented, with normal memory and speech. He did have several episodes of maroon-colored stools superimposed on a history of diverticulitis and he is scheduled for colonoscopy for this morning. The patient recently was started on baclofen for pain medicine. He is not taking opiates now. He has high blood pressure, for which he is on hydralazine. The patient is also taking benazepril, Lasix and gabapentin. He denies headaches or double vision. He does have a history of cataracts and surgery has been recommended, but he has not had surgery yet. He does walk with a cane and states that his balance has been off since he slipped on black ice about a year and a half ago. He sustained compression fracture at L4-L5 at that time. He has persisting complaints of sensory loss and poor coordination in his left upper extremity. He had ulnar nerve release as well as carpal tunnel in the past, but did not make a complete recovery. The patient denies alcohol and has not smoked for many years. 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 He lives with his 10-year-old son. He has 4 daughters and 2 sons. The oldest daughter looks in after him, but he had been completely independent. He had been driving without any difficulty. PAST MEDICAL HISTORY: As above. The patient has a history of gout as well as chronic kidney disease and left arm surgery as above. He also has had surgery on his knee on the left. FAMILY HISTORY: Positive for the of his mother from a "leaky heart". His father of a stroke. He is the only son with 8 sisters, several of whom have from cancer or stroke. REVIEW OF SYSTEMS: He denies constitutional symptoms of fever, night sweats, chills, rashes or lymphadenopathy. He denies visual problems or headaches. He denies problems with swallowing or with his speech. He does continue to have problems with the left hand, as above as well as beginning of problems with the right hand in terms of numbness as well. He has intermittent swelling and pain of his left knee. He reports blood in his stool, as above. He denies abdominal pain, constipation or diarrhea. He has chest pain occasionally when he stands and raises his left arm, but this is not a big problem for him at the present time. He denies shortness of breath or edema. He does state that he does not sleep well in the night and does take about a 3-hour nap on a daily basis. He has never been diagnosed with sleep apnea, but he has never been tested for it. PHYSICAL EXAMINATION: VITAL SIGNS: As above, blood pressure 139/70 in the right arm, temperature 36.4, pulse 69 and regular, respirations 16 and bedside pulse oximetry 100% on room air. GENERAL APPEARANCE: The patient is an elderly man, who appears his stated age. He is in no apparent distress, very pleasant and cooperative. NECK: Supple. No carotid bruits are heard. HEART: Examination reveals regular rhythm. NEUROLOGIC: On neuro testing, the patient is alert and oriented with normal memory and speech. On cranial nerves, the pupils are small. There are bilateral cataracts. Extraocular movements are full, without nystagmus. Visual sarmiento are full to confrontation. Facial sensation is normal. There is a mild residual weakness of the right side of the face when he smiles. Hearing is intact bilaterally. Tongue is normal. Motor testing reveals full power in his arms and legs. No fasciculations or involuntary movements are noted. The patient does have limitation of movement of his left shoulder, particularly in external rotation. Sensation testing showed diminished appreciation to pin in the median distribution of the right hand and the median and ulnar distribution of the left hand. Vibration sense was intact. Coordination testing was done well with rapid alternating movements. Gait was mildly wide based. He uses a cane. Romberg test, however, was negative. Reflexes were decreased throughout. [address] [address] CONSULTATION Name: KI ALCALA Room #: 219-P ADM IN M.R.#: [id number] Admission: 12/01/17 Attend Phys: Ziyad Ram MD Discharge: Date of : 42 Report #: [id number] Toes were downgoing. No vertebral tenderness was noted. LABORATORY DATA: Laboratory studies show a hemoglobin of 12.1, hematocrit 36.4 and platelets 346,000. The BUN is 50, the creatinine is 2.1. A B12 level was 472 on 11/24/2017. Imaging of the brain with MRI showed confluent areas of subcortical and periventricular white matter hyperintensity bilaterally, a nonspecific finding. IMPRESSION: Episode of loss of consciousness, syncope versus seizure. The patient was described as slumping over and jerking motions were noted as well. He himself states that he became aware of jerking even when he came to about 10-15 minutes later. He did not truly get back to baseline mentally for several hours, which would make syncope very unlikely. The patient has musculoskeletal problems with his knees and his left shoulder and has symptoms of median nerve and ulnar nerve problems. He has recently been started on baclofen. Recommend EEG and carotid Dopplers. By: 1013 0047 Juanjose Leigh MD /nt
--- NOTE | ~2017-12-01 | EEG ---
[facility] [place] [address] ELECTROENCEPHALOGRAM Name: KI ALCALA JR Room #: 219-P DIS IN M.R.#: [id number] Admission: 12/01/17 Attend Phys: Ziyad Ram MD Discharge: 12/04/17 Date of : 44 Report #: [id number] THIS REPORT FOR: //name// CC: Ziyad Gandhi DATE OF SERVICE: 12/04/2017 This patient is being evaluated for syncope. EEG was done by placing the electrode by standard 10-20 system of electrode placement. Both referential and sequential montages were used for recording. Background activity in this patient's EEG is about 11 Hz and 40 microvolts. The patient went to sleep that is associated with bilaterally symmetrical sleep spindle and vertex sharp waves. Photic stimulation is unremarkable. Throughout the record, no active epileptiform activity was noted. IMPRESSION: This patient's EEG is within normal limits. No active epileptiform activity was noticed during this record. It might be mentioned that EEG can be normal in a patient with a seizure disorder. Thank you very much for this referral. <ELECTRONICALLY SIGNED> By: Nehemias William MD 12/08/17 1732 1123 1149 Nehemias William MD /nt
[2017-12-01 01:44] LABS: ABSOLUTE NEUTROPHILS 6.9 thou/uL (1.4-8.2); BASOPHILS 0.4 % (0.0-2.0); HEMATOCRIT 36.4 % (42.0-52.0); HEMOGLOBIN 12.1 gm/dL (14.0-18.0); LYMPHOCYTES 17.9 % (24.0-44.0); MCH 28.4 pg (26.0-34.0); MCHC 33.2 g/dL (28.0-37.0); MCV 85.5 fL (80.0-100.0); MONOCYTES 8.8 % (1.0-8.0); PLATELET COUNT 346 thou/uL (150-400); POLYS 69.9 % (36.0-66.0); RBC 4.25 mil/uL (4.50-6.00); RDW 15.5 % (10.5-14.5); WBC 9.9 thou/uL (4.0-11.0)
[2017-12-01 01:50] LABS: ANION GAP 8 mmol/L (7-16); BUN 48 mg/dL (7-18); CALCIUM 8.7 mg/dL (8.5-10.1); CHLORIDE 99 mmol/L (98-107); CO2 25 mmol/L (21-32); CREATININE 2.6 mg/dL (0.7-1.3); GLUCOSE 118 mg/dL (74-106); POTASSIUM 4.7 mmol/L (3.5-5.1); SODIUM 132 mmol/L (136-145)
[2017-12-01 01:59] LABS: ALBUMIN 3.2 g/dL (3.4-5.0); MAGNESIUM 2.5 mg/dL (1.8-2.4); SGOT 16 U/L (15-37); SGPT 31 U/L (30-65); TOTAL BILIRUBIN 0.5 mg/dL (<0.1-1.0); TOTAL PROTEIN 8.2 g/dL (6.4-8.2); TROPONIN-I <0.06 ng/mL (<0.06)
[2017-12-02 03:15] VITALS: BP 119/63
[2017-12-02 04:43] LABS: HEMATOCRIT 36.4 % (42.0-52.0); HEMOGLOBIN 12.2 gm/dL (14.0-18.0); MCH 28.9 pg (26.0-34.0); MCHC 33.6 g/dL (28.0-37.0); RBC 4.23 mil/uL (4.50-6.00); RDW 15.1 % (10.5-14.5); WBC 8.2 thou/uL (4.0-11.0)
[2017-12-02 05:16] LABS: ANION GAP 4 mmol/L (7-16); BUN 50 mg/dL (7-18); CALCIUM 8.9 mg/dL (8.5-10.1); CHLORIDE 104 mmol/L (98-107); CO2 29 mmol/L (21-32); CREATININE 2.1 mg/dL (0.7-1.3); GLUCOSE 104 mg/dL (74-106); POTASSIUM 4.8 mmol/L (3.5-5.1); SODIUM 137 mmol/L (136-145); TROPONIN-I <0.06 ng/mL (<0.06)
[2017-12-02 08:51] VITALS: BP 123/63
[2017-12-02 10:56] VITALS: BP 129/46
[2017-12-02 15:32] VITALS: BP 109/59
[2017-12-02 21:26] VITALS: BP 107/51
[2017-12-02 21:52] VITALS: BP 150/51
[2017-12-03 05:25] VITALS: BP 139/70
[2017-12-03 07:03] VITALS: BP 133/77
[2017-12-03 11:13] VITALS: BP 123/58
[2017-12-03 15:13] VITALS: BP 114/60
[2017-12-03 19:20] VITALS: BP 134/59
[2017-12-04 04:57] VITALS: BP 133/62
[2017-12-04 05:03] LABS: CALCIUM 8.6 mg/dL (8.5-10.1); CREATININE 1.8 mg/dL (0.7-1.3); POTASSIUM 4.7 mmol/L (3.5-5.1)
[2017-12-04 05:29] LABS: ABSOLUTE NEUTROPHILS 4.3 thou/uL (1.4-8.2); BASOPHILS 0.4 % (0.0-2.0); EOSINOPHILS 4.7 % (0.0-3.0); HEMATOCRIT 30.8 % (42.0-52.0); HEMOGLOBIN 10.3 gm/dL (14.0-18.0); LYMPHOCYTES 29.3 % (24.0-44.0); MCH 28.7 pg (26.0-34.0); MCHC 33.4 g/dL (28.0-37.0); MCV 86.1 fL (80.0-100.0); MONOCYTES 10.2 % (1.0-8.0); PLATELET COUNT 345 thou/uL (150-400); POLYS 55.4 % (36.0-66.0); RBC 3.58 mil/uL (4.50-6.00); WBC 7.8 thou/uL (4.0-11.0)
[2017-12-04 07:45] VITALS: BP 121/64
[2017-12-04 12:00] VITALS: BP 111/53
[2017-12-04 15:55] VITALS: BP 111/53
[2017-12-04 16:00] VITALS: BP 114/67
[2017-12-04] MEDS ORDERED: PEPCID20 MG PO (18:06)
[2017-12-04] MEDS ORDERED: PROTONIX40 M1 PO (18:06)
[2017-12-04] MEDS ORDERED: LASIX 40 MG TAB40 M2 PO (18:06)
[2017-12-04] MEDS ORDERED: ASPIR 8181 MG PO (18:06)
== END 2017-12-04 18:30 | disposition home or self-care (01) | DRG 682 ==
LOC: ER 01:03 → EROBS 02:16 → 2N 02:16
PROVIDERS: Emergency Medicine; Hospitalist; Nurse Practitioner Family
PROC: 0DBC8ZX Excision of Ileocecal Valve, Via Natural or Artificial Opening Endoscopic, Diagnostic (ICD-10-PCS; principal; 2017-12-03)
PROC: 0DBP8ZZ Excision of Rectum, Via Natural or Artificial Opening Endoscopic (ICD-10-PCS; principal; 2017-12-03)
PROC: 0DJ08ZZ Inspection of Upper Intestinal Tract, Via Natural or Artificial Opening Endoscopic (ICD-10-PCS; principal; 2017-12-03)
DX: N17.0 Acute kidney failure with tubular necrosis (principal); K57.31 Diverticulosis of large intestine without perforation or abscess with bleeding; I13.0 Hypertensive heart and chronic kidney disease with heart failure and stage 1 through stage 4 chronic kidney disease, or unspecified chronic kidney disease; I50.32 Chronic diastolic (congestive) heart failure; G40.909 Epilepsy, unspecified, not intractable, without status epilepticus; M10.9 Gout, unspecified; E86.0 Dehydration; E86.9 Volume depletion, unspecified; N18.3 Chronic kidney disease, stage 3 (moderate); G51.0 Bell's palsy; K62.1 Rectal polyp; Z87.81 Personal history of (healed) traumatic fracture; Z88.6 Allergy status to analgesic agent; Z82.49 Family history of ischemic heart disease and other diseases of the circulatory system; Z82.3 Family history of stroke; Z87.891 Personal history of nicotine dependence; Z79.82 Long term (current) use of aspirin; Z79.899 Other long term (current) drug therapy
CPT/HCPCS: 10081; 62110; 62900; 70005

== ENCOUNTER 2018-01-30 03:28 | Emergency (ER) | payer MEDICARE ==
[~2018-01-30] VITALS: Ht 165.1 cm; Wt 95.3 kg
[~2018-01-30 03:28] MED LIST changes: +ASPIR 8181 MG PO; +PEPCID20 MG PO; +SENNA8.6 MG PO
[2018-01-30] MEDS ORDERED: FLEXERIL PO (03:51)
[2018-01-30] MEDS ORDERED: IBUPROFEN 600600 M1 PO (03:51)
[2018-01-30 04:37] VITALS: BP 176/86
[2018-01-30] MEDS ORDERED: ULORIC40 MG PO (21:19)
[2018-01-30] MEDS ORDERED: PREDNISONE 20 M20 MG PO (22:14)
== END 2018-01-30 04:41 | disposition home or self-care (01) ==
LOC: ER 03:28
DX: M54.2 Cervicalgia (principal); M10.9 Gout, unspecified; I13.0 Hypertensive heart and chronic kidney disease with heart failure and stage 1 through stage 4 chronic kidney disease, or unspecified chronic kidney disease; N18.3 Chronic kidney disease, stage 3 (moderate); I50.30 Unspecified diastolic (congestive) heart failure; G89.29 Other chronic pain; M19.90 Unspecified osteoarthritis, unspecified site; Z86.73 Personal history of transient ischemic attack (TIA), and cerebral infarction without residual deficits; Z88.5 Allergy status to narcotic agent

== ENCOUNTER 2018-01-30 21:09 | Emergency (ER) | payer MEDICARE ==
[~2018-01-30] VITALS: Ht 165.1 cm; Wt 99.8 kg
[~2018-01-30 21:09] MED LIST changes: +IBUPROFEN 600600 M1 PO
[2018-01-30] MEDS ORDERED: ULORIC40 MG PO (21:19)
[2018-01-30] MEDS ORDERED: PREDNISONE 20 M20 MG PO (22:14)
[2018-01-30 22:55] VITALS: BP 135/62
== END 2018-01-30 22:56 | disposition home or self-care (01) ==
LOC: ER 21:09
DX: M43.6 Torticollis (principal); M10.9 Gout, unspecified; I13.0 Hypertensive heart and chronic kidney disease with heart failure and stage 1 through stage 4 chronic kidney disease, or unspecified chronic kidney disease; N18.3 Chronic kidney disease, stage 3 (moderate); I50.30 Unspecified diastolic (congestive) heart failure; G51.0 Bell's palsy; G89.29 Other chronic pain; M19.90 Unspecified osteoarthritis, unspecified site; Z86.73 Personal history of transient ischemic attack (TIA), and cerebral infarction without residual deficits; Z88.6 Allergy status to analgesic agent

== ENCOUNTER 2018-02-09 11:01 | Inpatient (IN) | payer MEDICARE ==
[~2018-02-09] VITALS: Ht 165.1 cm; Wt 97.5 kg
--- NOTE | ~2018-02-09 | EKG ---
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 : 1940 Requested By: Lorenzo Herring Order Number: [id number] MD: Brian Castillo Measurements Intervals [place] Rate: 73 P: -6 VA: 175 QRS: -20 QRSD: 81 T: 129 QT: 404 QTc: 446 Interpretive Statements Sinus rhythm Probable left atrial enlargement LVH with secondary repolarization abnormality Compared to ECG 12/23/2017 13:01:54 Atrial premature complex(es) no longer present Electronically Signed On 02-09-2018 13:29:22 CDT by Brian Castillo [email or web address] <ELECTRONICALLY SIGNED> By: Brian Castillo MD 02/09/18 1329 1119 1119 Brian Castillo MD /EPI
[2018-02-09 11:02] VITALS: BP 222/119
[2018-02-09 11:48] LABS: ABSOLUTE NEUTROPHILS 4.9 thou/uL (1.4-8.2); BASOPHILS 0.7 % (0.0-2.0); EOSINOPHILS 8.5 % (0.0-3.0); HEMATOCRIT 31.4 % (42.0-52.0); HEMOGLOBIN 10.5 gm/dL (14.0-18.0); LYMPHOCYTES 17.8 % (24.0-44.0); MCH 28.9 pg (26.0-34.0); MCHC 33.5 g/dL (28.0-37.0); MCV 86.2 fL (80.0-100.0); PLATELET COUNT 352 thou/uL (150-400); RBC 3.64 mil/uL (4.50-6.00); RDW 15.7 % (10.5-14.5); WBC 7.7 thou/uL (4.0-11.0)
[2018-02-09 11:59] LABS: ANION GAP 9 mmol/L (7-16); BUN 11 mg/dL (7-18); CHLORIDE 105 mmol/L (98-107); CO2 27 mmol/L (21-32); CREATININE 1.3 mg/dL (0.7-1.3); GLUCOSE 97 mg/dL (74-106); POTASSIUM 3.5 mmol/L (3.5-5.1); SODIUM 141 mmol/L (136-145)
[2018-02-09 12:08] LABS: ALBUMIN 3.2 g/dL (3.4-5.0); MAGNESIUM 1.8 mg/dL (1.8-2.4); SGOT 26 U/L (15-37); SGPT 39 U/L (30-65); TOTAL BILIRUBIN 0.6 mg/dL (<0.1-1.0); TOTAL PROTEIN 7.8 g/dL (6.4-8.2); TROPONIN-I <0.06 ng/mL (<0.06)
[2018-02-09 12:22] LABS: BE(vivo) -0.8 mmol/L (-2 to +3); HCO3 22.7 mmol/L (22.0-26.0); PCO2 33.5 mmHg (35.0-45.0); PO2 59.2 mmHg (80.0-100.0); pH 7.449 (7.360-7.450)
[2018-02-09 13:17] VITALS: BP 176/88
[2018-02-09 13:19] LABS: ALBUMIN 3.3 g/dL (3.4-5.0); TOTAL PROTEIN 7.5 g/dL (6.4-8.2)
[2018-02-09 13:44] LABS: TSH 2.196 uIU/mL (0.358-3.740)
[2018-02-09 14:00] VITALS: BP 179/91
[2018-02-09 15:30] VITALS: BP 154/77
[2018-02-09 17:18] VITALS: BP 167/90
[2018-02-09 19:46] VITALS: BP 124/66
[2018-02-10 03:05] LABS: HEMATOCRIT 30.9 % (42.0-52.0); HEMOGLOBIN 10.2 gm/dL (14.0-18.0); MCH 28.3 pg (26.0-34.0); MCHC 33.1 g/dL (28.0-37.0); MCV 85.5 fL (80.0-100.0); RBC 3.62 mil/uL (4.50-6.00); RDW 15.7 % (10.5-14.5); WBC 7.5 thou/uL (4.0-11.0)
[2018-02-10 03:10] LABS: CALCIUM 8.4 mg/dL (8.5-10.1); CREATININE 1.3 mg/dL (0.7-1.3); MAGNESIUM 1.6 mg/dL (1.8-2.4); POTASSIUM 3.6 mmol/L (3.5-5.1)
[2018-02-10 04:44] VITALS: BP 140/74
[2018-02-10 07:22] VITALS: BP 176/83
[2018-02-10] MEDS ORDERED: COREG25 MG PO (08:56)
[2018-02-10] MEDS ORDERED: PROCARDIA XL30 MG PO (08:56)
[2018-02-10] MEDS ORDERED: LASIX 40 MG TAB40 M2 PO (08:58)
[2018-02-10] MEDS ORDERED: POTASSIUM20 PO (09:00)
[2018-02-10 11:52] VITALS: BP 140/90
[2018-02-10 14:39] VITALS: BP 155/78
[2018-02-10 20:00] VITALS: BP 137/73
[2018-02-11 04:06] LABS: CALCIUM 8.9 mg/dL (8.5-10.1); CREATININE 1.5 mg/dL (0.7-1.3); MAGNESIUM 1.9 mg/dL (1.8-2.4); POTASSIUM 3.4 mmol/L (3.5-5.1)
[2018-02-11 04:31] LABS: HEMATOCRIT 32.8 % (42.0-52.0); HEMOGLOBIN 10.9 gm/dL (14.0-18.0); MCH 28.4 pg (26.0-34.0); MCHC 33.1 g/dL (28.0-37.0); MCV 85.8 fL (80.0-100.0); RBC 3.82 mil/uL (4.50-6.00); RDW 15.4 % (10.5-14.5); WBC 11.3 thou/uL (4.0-11.0)
[2018-02-11 04:44] VITALS: BP 145/63
[2018-02-11 08:04] VITALS: BP 139/85
[2018-02-11] MEDS ORDERED: PREDNISONE 20 M20 MG PO (11:28)
[2018-02-11] MEDS ORDERED: IBUPROFEN 600600 M1 PO (11:28)
[2018-02-11 11:57] VITALS: BP 139/85
[2018-02-11 11:59] VITALS: BP 139/85
[2018-02-11 12:00] VITALS: BP 139/85
[2018-02-11 12:50] VITALS: BP 139/85
== END 2018-02-11 13:15 | disposition home or self-care (01) | DRG 291 ==
LOC: ER 11:01 → EROBS 12:11 → 2N 12:11 → ENTRNSPT 02-11 12:49 → 2N 02-11 13:15
PROVIDERS: Emergency Medicine; Internal Medicine
DX: I11.0 Hypertensive heart disease with heart failure (principal); J96.01 Acute respiratory failure with hypoxia; J18.9 Pneumonia, unspecified organism; I48.92 Unspecified atrial flutter; I50.33 Acute on chronic diastolic (congestive) heart failure; G51.0 Bell's palsy; M10.9 Gout, unspecified; E53.8 Deficiency of other specified B group vitamins; K21.9 Gastro-esophageal reflux disease without esophagitis; E83.42 Hypomagnesemia; I08.0 Rheumatic disorders of both mitral and aortic valves; N18.3 Chronic kidney disease, stage 3 (moderate); D63.8 Anemia in other chronic diseases classified elsewhere; I16.0 Hypertensive urgency; M19.90 Unspecified osteoarthritis, unspecified site; G89.29 Other chronic pain; M54.9 Dorsalgia, unspecified; N40.0 Benign prostatic hyperplasia without lower urinary tract symptoms; Z96.661 Presence of right artificial ankle joint; Z88.5 Allergy status to narcotic agent; Z79.899 Other long term (current) drug therapy; Z91.19 Patient's noncompliance with other medical treatment and regimen; Z86.73 Personal history of transient ischemic attack (TIA), and cerebral infarction without residual deficits
CPT/HCPCS: 10194

== ENCOUNTER 2018-03-29 21:05 | Emergency (ER) | payer MEDICARE ==
[~2018-03-29] VITALS: Ht 165.1 cm; Wt 95.3 kg
[~2018-03-29 21:05] MED LIST changes: +COREG25 MG PO; +POTASSIUM20 PO; +PROCARDIA XL30 MG PO
[2018-03-29] MEDS ORDERED: COLCHICINE0.6 MG PO (21:46)
[2018-03-29] MEDS ORDERED: NORCO 5-325 TA1 EACH PO (21:46)
[2018-03-29 22:50] VITALS: BP 159/66
== END 2018-03-29 22:42 | disposition home or self-care (01) ==
LOC: ER 21:05
DX: M10.022 Idiopathic gout, left elbow (principal); M10.012 Idiopathic gout, left shoulder; M10.042 Idiopathic gout, left hand; G89.29 Other chronic pain; I13.0 Hypertensive heart and chronic kidney disease with heart failure and stage 1 through stage 4 chronic kidney disease, or unspecified chronic kidney disease; I50.30 Unspecified diastolic (congestive) heart failure; N18.3 Chronic kidney disease, stage 3 (moderate); M19.90 Unspecified osteoarthritis, unspecified site; M54.9 Dorsalgia, unspecified; Z86.2 Personal history of diseases of the blood and blood-forming organs and certain disorders involving the immune mechanism; Z86.73 Personal history of transient ischemic attack (TIA), and cerebral infarction without residual deficits; Z96.698 Presence of other orthopedic joint implants

== ENCOUNTER 2018-04-19 13:54 | Emergency (ER) | payer MEDICARE ==
[~2018-04-19] VITALS: Ht 165.1 cm; Wt 68.0 kg
[2018-04-19 15:01] LABS: ABSOLUTE NEUTROPHILS 6.1 thou/uL (1.4-8.2); BASOPHILS 0.4 % (0.0-2.0); EOSINOPHILS 2.6 % (0.0-3.0); HEMATOCRIT 35.6 % (42.0-52.0); LYMPHOCYTES 20.6 % (24.0-44.0); MCH 28.2 pg (26.0-34.0); MCHC 33.6 g/dL (28.0-37.0); MONOCYTES 11.1 % (1.0-8.0); PLATELET COUNT 264 thou/uL (150-400); POLYS 65.3 % (36.0-66.0); RBC 4.24 mil/uL (4.50-6.00); RDW 15.2 % (10.5-14.5); WBC 9.3 thou/uL (4.0-11.0)
[2018-04-19 15:09] VITALS: BP 157/64
[2018-04-19 15:09] LABS: CALCIUM 8.7 mg/dL (8.5-10.1); CREATININE 1.3 mg/dL (0.7-1.3); POTASSIUM 3.4 mmol/L (3.5-5.1)
[2018-04-19] MEDS ORDERED: IBUPROFEN 400400 M2 PO (15:26)
[2018-04-19] MEDS ORDERED: MEDROLDOSEPACK PO (15:26)
== END 2018-04-19 16:01 | disposition home or self-care (01) ==
LOC: ER 13:54
PROVIDERS: Student in an Organized Health Care Education/Training Program
DX: M10.032 Idiopathic gout, left wrist (principal); M10.012 Idiopathic gout, left shoulder; I13.0 Hypertensive heart and chronic kidney disease with heart failure and stage 1 through stage 4 chronic kidney disease, or unspecified chronic kidney disease; N18.3 Chronic kidney disease, stage 3 (moderate); I50.30 Unspecified diastolic (congestive) heart failure; G89.29 Other chronic pain; M54.9 Dorsalgia, unspecified; Z86.73 Personal history of transient ischemic attack (TIA), and cerebral infarction without residual deficits; Z86.2 Personal history of diseases of the blood and blood-forming organs and certain disorders involving the immune mechanism; Z88.5 Allergy status to narcotic agent

== ENCOUNTER → 2018-05-04 | Outpatient (CLI) | payer MEDICARE ==
[~2018-05-04] MED LIST changes: +IBUPROFEN 400400 M2 PO
== END ==
LOC: RAD 09:35
DX: M47.812 Spondylosis without myelopathy or radiculopathy, cervical region (principal); M48.02 Spinal stenosis, cervical region; G62.9 Polyneuropathy, unspecified; G89.29 Other chronic pain

== ENCOUNTER 2018-05-28 11:46 | Emergency (ER) | payer MEDICARE ==
[~2018-05-28] VITALS: Ht 165.1 cm; Wt 104.3 kg
[2018-05-28] MEDS ORDERED: PERCOCET 5-3251 EACH PO (13:47)
[2018-05-28 14:20] VITALS: BP 177/83
[2018-05-28] MEDS ORDERED: COLCHICINE0.6 MG PO (14:46)
== END 2018-05-28 14:21 | disposition home or self-care (01) ==
LOC: ER 11:46
DX: S42.415A Nondisplaced simple supracondylar fracture without intercondylar fracture of left humerus, initial encounter for closed fracture (principal); M10.9 Gout, unspecified; I13.0 Hypertensive heart and chronic kidney disease with heart failure and stage 1 through stage 4 chronic kidney disease, or unspecified chronic kidney disease; I50.9 Heart failure, unspecified; N18.3 Chronic kidney disease, stage 3 (moderate); M54.9 Dorsalgia, unspecified; G89.29 Other chronic pain; M19.90 Unspecified osteoarthritis, unspecified site; Z86.73 Personal history of transient ischemic attack (TIA), and cerebral infarction without residual deficits; Z88.5 Allergy status to narcotic agent; Z86.2 Personal history of diseases of the blood and blood-forming organs and certain disorders involving the immune mechanism; W00.0XXA Fall on same level due to ice and snow, initial encounter; Y93.89 Activity, other specified; Y92.89 Other specified places as the place of occurrence of the external cause; Y99.8 Other external cause status

== ENCOUNTER → 2019-02-04 | Outpatient (CLI) | payer MEDICARE ==
[~2019-02-04] VITALS: Ht 165.1 cm; Wt 95.3 kg
[~2019-02-04] MED LIST changes: +HYDROCODON-ACE1 EAC7 PO
--- NOTE | ~2019-02-04 | HPC ---
[facility] [address] [place] [place] [address] PAIN MANAGEMENT CONSULTATION Name: KI ALCALA JR Room #: REG [facility] Vicki.#: [id number] Admission: 02/04/19 Attend Phys: Musa Mays MD Discharge: Date of : 42 Report #: [id number] THIS REPORT FOR: //name// CC: Corey Mays DATE OF SERVICE: 02/04/2019 CHIEF COMPLAINT: Excruciating pain in the low back radiating into both legs. 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 He has had pain dating back to 2016 and beyond. It has worsened as he has aged and it is described as a continuous, steady, cramping, aching, shooting sensation across his low back. It radiates into his legs bilaterally as far as the calves, at times associated with numbness. 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 He enjoys making fitogram dishes for friends and on occasion caters. He became father late in life and has a 12-year-old son. He talks with pride of his son and his accomplishments. He reports that with his pain at his current level it is difficult for him to function at many of his day-to-day activities including prolonged standing. Pain is made worse with all daily activities and he has found nothing to make it better in the way of physical exercise or physical therapies. He has not tried chiropractic. He has tried prescription-strength nonsteroidal anti-inflammatories without benefit. He was given small doses of hydrocodone and found them to be quite helpful. These are small doses, hydrocodone 5/325 twice a day. It was enough to provide him with quite adequate relief. He was told by Dr. Gandhi that she was uncomfortable prescribing this for him. He denies any side effects, including constipation. He understands that there is an opioid crisis and is careful about safeguarding of medications by report. CURRENT MEDICINES: Hydralazine, potassium, Lasix, nifedipine, carvedilol, Uloric and tamsulosin. [address] [address] PAIN MANAGEMENT CONSULTATION Name: KI ALCALA Room #: REG NINA De Leon#: [id number] Admission: 02/04/19 Attend Phys: Musa Mays MD Discharge: Date of : 42 Report #: [id number] ALLERGIES: CODEINE. PAST MEDICAL HISTORY: He has a history of congestive heart failure, although he did not note it. It is on Dr. Gandhi's records. He is also treated for hypertension and has had a previous vertebral fracture at L4-L5. 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 He is a former smoker, last smoked in 1977. He denies use of tobacco, denies use of marijuana or any other illegal drugs. REVIEW OF SYSTEMS: Completed by the patient, describes abdominal pain, but otherwise is reported as negative in every other field. He denies shortness of breath, chest pain. No problems with dizziness, lightheadedness, depression or anxiety. PHYSICAL EXAMINATION: GENERAL: He is a very pleasant, outgoing 78-year-old, very loquacious. He is 5 feet 5 inches, 210 pounds, BMI of 34.9. Blood pressure is 161/75, heart rate 75, respirations 14, O2 sat 99. His pain intensity 5/10. He moves independently from sitting to standing position, has a nice stable gait. He does not appear to be a fall risk. HEENT: Normal. His pupils were equal, round, reactive to light. EOMs are intact. Mucous membranes are moist. There is some decreased range of motion of the cervical spine. CHEST: Clear. CARDIAC: Rhythm is regular with no audible murmur. ABDOMEN: Soft. No hepatomegaly or other abnormal finding. Bowel sounds are present. MUSCULOSKELETAL: Examination of the spine reveals tenderness across the lumbosacral segment. There is some pain with both flexion and extension. MUSCULOSKELETAL: Examination of the lower extremities reveals a marked discrepancy in size between the right thigh, which is smaller than the left. This is easily notable without measuring. It does not appear to be edematous or swollen. There is some hypersensitivity across the top of the thigh in the L4-L5 distribution. Calf musculature is symmetrical and equal. There is no focal weakness noted on exam, although he complains of some weakness in his left leg. Straight leg raising is moderately positive on the left, reproducing some discomfort. Deep tendon reflexes are 1+ to trace at the knees and 0 bilaterally at the ankle. Light touch sensation is intact. MRI: None. IMPRESSION: 1. Chronic low back pain with radiculopathy. 2. Congestive heart failure. [facility] [address] [place] [address] PAIN MANAGEMENT CONSULTATION Name: KI ALCALA JR Room #: REG NINA De Leon#: [id number] Admission: 02/04/19 Attend Phys: Musa Mays MD Discharge: Date of : 42 Report #: [id number] RECOMMENDATIONS: 1. I think he is a good candidate for an epidural steroid injection. He was reluctant to receive a shot in his back today. We discussed pros and cons. I will not force him into it, left it as a tool and an option for him to go forward. 2. Small dose of hydrocodone, I think, is not an unreasonable offer to help manage his pain. I had a lengthy discussion about the use of opioids cautiously, his medications, and I will allow him 1 prescription and evaluation in 1 month. I told him that he can take no more than 2 tablets a day for severe pain. He is to carefully safeguard his medications. He is to watch closely for side effects, including constipation, drowsiness, dizziness. He has a 12-year-old son in the house and is instructed to safeguard his medications carefully. He was discharged from the clinic with a followup visit in 1 month. After he was discharged, we were able to obtain an MRI from 12/29/2016. This MRI confirms that he has severe spinal stenosis at L4-L5. This encroaches upon the lateral recess. This would then be a reason for his back and radicular pain. Followup visit planned in 1 month. We will consider epidural injection at that time. By: 1554 0429 Musa Mays MD /nt
[2019-02-04 14:00] VITALS: BP 161/75
--- NOTE | 2019-02-04 14:25 | NUR ---
Pain Clinic Assessment: 1. History of Osteoarthritis: SHOULDERS KNEES History of Rheumatoid Arthritis: Not Applicable 2. Height: 5 ft. 5 in. 165.1 cm. Weight: 210.0 lb. oz. 95.256 kg. Patient's BMI: 34.9 3. Vital Signs: BP: 161/75 Pulse: 55 Resp: 14 Temp: 02 Sat: 99 ECG Mon: 4. Pain Intensity: 5 5. Fall Risk: Dizziness: Y Needs help standing or walking: N Fallen in the last 3 months: N Fall risk comments: 6. Patient on Blood Thinner: None 7. History of Hypertension: Y 8. Opioid Therapy greater than 6 weeks: N Opiate Contract Signed: 9. Risk Assessment Tool Provided: LOW RISK 0/3 10. Functional Assessment Tool: 58/70 11. Recreational Drug Use: Never Drug Type: Tobacco Use: Never Smoker Tobacco Type: Amount or Packs/day: How Many Years: Alcohol Use: No Frequency: Quant:
== END ==
LOC: PAIN 06:59
DX: M54.16 Radiculopathy, lumbar region (principal); I11.0 Hypertensive heart disease with heart failure; I50.9 Heart failure, unspecified; Z88.8 Allergy status to other drugs, medicaments and biological substances; Z79.899 Other long term (current) drug therapy

== ENCOUNTER → 2019-02-23 | Outpatient (CLI) | payer MEDICARE | LOC: MRI 10:39 | DX: M51.16 Intervertebral disc disorders with radiculopathy, lumbar region (principal); M48.061 Spinal stenosis, lumbar region without neurogenic claudication; M51.35 Other intervertebral disc degeneration, thoracolumbar region; M51.37 Other intervertebral disc degeneration, lumbosacral region; E88.2 Lipomatosis, not elsewhere classified ==

== ENCOUNTER 2019-04-29 09:07 | Emergency (ER) | payer MEDICARE, OTHER ==
[~2019-04-29] VITALS: Ht 165.1 cm; Wt 95.3 kg
[2019-04-29] MEDS ORDERED: KLOR-CON M2020 MEQ PO (09:17)
[2019-04-29] MEDS ORDERED: NORCO 5-325 TA1 EAC1 PO (09:17)
[2019-04-29 10:40] VITALS: BP 143/71
[2019-04-29] MEDS ORDERED: AMOXICILLIN875 MG PO ×2 (10:41→11:29)
== END 2019-04-29 10:50 | disposition home or self-care (01) ==
LOC: ER 09:07
DX: J20.9 Acute bronchitis, unspecified (principal); J06.9 Acute upper respiratory infection, unspecified; I10 Essential (primary) hypertension; Z98.890 Other specified postprocedural states; Z88.5 Allergy status to narcotic agent

== ENCOUNTER 2019-10-25 18:12 | Emergency (ER) | payer MEDICARE ==
[~2019-10-25] VITALS: Ht 165.1 cm; Wt 95.3 kg
[~2019-10-25 18:12] MED LIST changes: +KLOR-CON M2020 MEQ PO; +NORCO 5-325 TA1 EAC1 PO
[2019-10-25] MEDS ORDERED: PREDNISONE 20 M20 MG PO (19:50)
[2019-10-25] MEDS ORDERED: AFRIN15 M1 NASAL (19:50)
[2019-10-25 20:02] VITALS: BP 153/63
== END 2019-10-25 20:03 | disposition home or self-care (01) ==
LOC: ER 18:12
DX: J31.0 Chronic rhinitis (principal); I10 Essential (primary) hypertension; Z79.2 Long term (current) use of antibiotics; Z79.899 Other long term (current) drug therapy; Z88.5 Allergy status to narcotic agent

== ENCOUNTER 2019-11-22 11:05 | Emergency (ER) | payer MEDICARE ==
[~2019-11-22] VITALS: Ht 165.1 cm; Wt 79.4 kg
[~2019-11-22 11:05] MED LIST changes: +AFRIN15 M1 NASAL
[2019-11-22 12:23] LABS: ABSOLUTE NEUTROPHILS 4.6 thou/uL (1.4-8.2); BASOPHILS 0.5 % (0.0-2.0); EOSINOPHILS 8.2 % (0.0-3.0); HEMATOCRIT 37.7 % (42.0-52.0); HEMOGLOBIN 12.8 gm/dL (14.0-18.0); LYMPHOCYTES 25.1 % (24.0-44.0); MCH 30.3 pg (26.0-34.0); MCHC 33.9 g/dL (28.0-37.0); MCV 89.2 fL (80.0-100.0); PLATELET COUNT 309 thou/uL (150-400); POLYS 59.2 % (36.0-66.0); RBC 4.22 mil/uL (4.50-6.00); RDW 14.7 % (10.5-14.5); WBC 7.8 thou/uL (4.0-11.0)
[2019-11-22 12:38] LABS: CALCIUM 8.8 mg/dL (8.5-10.1); CREATININE 1.5 mg/dL (0.7-1.3); POTASSIUM 3.8 mmol/L (3.5-5.1)
[2019-11-22 12:41] LABS: ALBUMIN 3.6 g/dL (3.4-5.0); TOTAL BILIRUBIN 0.7 mg/dL (0.2-1.0); TOTAL PROTEIN 8.3 g/dL (6.4-8.2)
[2019-11-22 12:55] VITALS: BP 148/77
--- NOTE | 2019-11-22 14:28 | EKG ---
[facility] [address] [facility] [place] [address] ELECTROCARDIOGRAM REPORT Name: FREDRICKKI Room #: [facility] DORIE MRandy#: [id number] Admission: 11/22/19 Attend Phys: Discharge: 11/22/19 Date of : 42 Report #: [id number] THIS REPORT FOR: cc: Amita Gandhi DNP, Mary E. DNP Couchonnal, Luis F. MD ~ THIS REPORT FOR: //name// [facility] ED Test Date: 2019-11-22 Test Time: 12:27:25 Pat Name: KI ALCALA Department: Room: Gender: Director Money: [facility] : 1940 Requested By: Shannon Garcia Order Number: [id number] MD: Brian Castillo Measurements Intervals [place] Rate: 61 P: 18 MS: 199 QRS: -18 QRSD: 85 T: 144 QT: 429 QTc: 432 Interpretive Statements Sinus rhythm Probable left atrial enlargement LVH with secondary repolarization abnormality Baseline wander in lead(s) V6 Compared to ECG 02/09/2018 11:19:38 No significant changes Electronically Signed On 11-22-2019 14:28:42 CDT by Brian Castillo [email or web address] <ELECTRONICALLY SIGNED> By: Brian Castillo MD 11/22/19 1428 1227 1227 Brian Castillo MD /EPI
== END 2019-11-22 12:55 | disposition home or self-care (01) ==
LOC: ER 11:05
PROVIDERS: Physician Assistant
DX: R20.2 Paresthesia of skin (principal); I10 Essential (primary) hypertension; Z79.2 Long term (current) use of antibiotics; Z79.899 Other long term (current) drug therapy; Z88.5 Allergy status to narcotic agent

== ENCOUNTER 2019-12-23 07:53 | Emergency (ER) | payer MEDICARE ==
[~2019-12-23] VITALS: Ht 165.1 cm; Wt 72.6 kg
[2019-12-23 09:03] LABS: URINE BILIRUBIN NEGATIVE (Negative); URINE BLOOD NEGATIVE (Negative); URINE CLARITY CLEAR; URINE COLOR YELLOW; URINE GLUCOSE-RANDOM* NEGATIVE (Negative); URINE KETONES NEGATIVE (Negative); URINE LEUKOCYTES-REFLEX NEGATIVE (Negative); URINE NITRITE-REFLEX NEGATIVE (Negative); URINE PROTEIN (DIPSTICK) NEGATIVE (Negative); URINE UROBILINOGEN 0.2 E.U./dl (0.2-1.0)
[2019-12-23 09:18] LABS: ABSOLUTE NEUTROPHILS 5.5 thou/uL (1.4-8.2); BASOPHILS 0.7 % (0.0-2.0); EOSINOPHILS 2.8 % (0.0-3.0); HEMATOCRIT 36.5 % (42.0-52.0); HEMOGLOBIN 12.2 gm/dL (14.0-18.0); LYMPHOCYTES 23.9 % (24.0-44.0); MCH 29.9 pg (26.0-34.0); MCHC 33.4 g/dL (28.0-37.0); MCV 89.4 fL (80.0-100.0); MONOCYTES 8.6 % (1.0-8.0); PLATELET COUNT 269 thou/uL (150-400); RBC 4.08 mil/uL (4.50-6.00); RDW 14.3 % (10.5-14.5); WBC 8.6 thou/uL (4.0-11.0)
[2019-12-23 09:26] LABS: CALCIUM 8.5 mg/dL (8.5-10.1); CREATININE 1.5 mg/dL (0.7-1.3); POTASSIUM 3.7 mmol/L (3.5-5.1)
[2019-12-23 11:41] VITALS: BP 135/87
[2019-12-23] MEDS ORDERED: MECLIZINE HCL25 M1 PO (11:56)
--- NOTE | 2019-12-24 08:59 | EKG ---
[facility] [place] [address] [place] [address] ELECTROCARDIOGRAM REPORT Name: KI ALCALA Room #: DEP M.R.#: [id number] Admission: 12/23/19 Attend Phys: Discharge: 12/23/19 Date of : 42 Report #: [id number] THIS REPORT FOR: cc: Amita Gandhi DNP, Mary E. DNP Lundgren, Craig H. MD [facility] THIS REPORT FOR: //name// [facility] ED Test Date: 2019-12-23 Test Time: 08:09:41 Pat Name: KI ALCALA Department: Room: Gender: Vehicle Insurance Agent: : 1940 Requested By: Isauro Bauer Order Number: [id number] MD: Gilberto Cabral Measurements Intervals [place] Rate: 56 P: -19 SC: 209 QRS: -1 QRSD: 80 T: 208 QT: 406 QTc: 392 Interpretive Statements Sinus rhythm Early R wave progression Nonspecific ST and T wave abnormality Compared to ECG 11/22/2019 12:27:25 No significant change was found Electronically Signed On 12-24-2019 8:59:09 CDT by Gilberto Cabral [email or web address] <ELECTRONICALLY SIGNED> By: Gilberto Cabral MD, FACC 12/24/19 0859 8 8 Gilberto Cabral MD, [facility] /EPI
== END 2019-12-23 11:41 | disposition home or self-care (01) ==
LOC: ER 07:53
PROVIDERS: Emergency Medicine
DX: E86.0 Dehydration (principal); R42 Dizziness and giddiness; R09.89 Other specified symptoms and signs involving the circulatory and respiratory systems; I10 Essential (primary) hypertension; Z79.899 Other long term (current) drug therapy; Z88.5 Allergy status to narcotic agent; Z98.890 Other specified postprocedural states

== ENCOUNTER 2020-02-04 02:18 | Emergency (ER) | payer MEDICARE ==
[~2020-02-04] VITALS: Ht 165.1 cm; Wt 86.2 kg
[~2020-02-04 02:18] MED LIST changes: +MECLIZINE HCL25 M1 PO
[2020-02-04 02:56] LABS: HEMATOCRIT 36.8 % (42.0-52.0); HEMOGLOBIN 12.2 gm/dL (14.0-18.0); MCH 29.3 pg (26.0-34.0); MCHC 33.1 g/dL (28.0-37.0); MCV 88.8 fL (80.0-100.0); RBC 4.15 mil/uL (4.50-6.00); RDW 14.2 % (10.5-14.5); WBC 9.2 thou/uL (4.0-11.0)
[2020-02-04 03:03] LABS: ANION GAP 8 mmol/L (7-16); BUN 23 mg/dL (7-18); CALCIUM 8.5 mg/dL (8.5-10.1); CHLORIDE 101 mmol/L (98-107); CO2 31 mmol/L (21-32); CREATININE 1.3 mg/dL (0.7-1.3); GLUCOSE 105 mg/dL (74-106); POTASSIUM 3.4 mmol/L (3.5-5.1); SODIUM 140 mmol/L (136-145)
[2020-02-04 03:08] LABS: TROPONIN-I <0.06 ng/mL (<0.06)
[2020-02-04 05:05] VITALS: BP 162/88
--- NOTE | 2020-02-04 07:39 | EKG ---
[facility] [address] [address] ELECTROCARDIOGRAM REPORT Name: FREDRICK,JEFF Room #: DEP DORIE De Leon#: [id number] Admission: 02/04/20 Attend Phys: Discharge: 02/04/20 Date of : 42 Report #: [id number] THIS REPORT FOR: cc: Amita Gandhi DNP, Mary E. DNP Lundgren, Craig H. 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: [facility] : 1940 Requested By: Kelli Mace Order Number: [id number] MD: Gilberto Cabral Measurements Intervals [place] Rate: 64 P: -2 IL: 200 QRS: -21 QRSD: 87 T: 86 QT: 407 QTc: 420 Interpretive Statements Sinus rhythm with first-degree AV block Multiple atrial premature complexes Nonspecific ST segment abnormality Compared to ECG 12/23/2019 08:09:41 Ventricular premature complex(es) now present Electronically Signed On 02-04-2020 7:39:21 CDT by Gilberto Cabral [email or web address] <ELECTRONICALLY SIGNED> By: Gilberto Cabral MD, FACC 02/04/20 0739 0236 0236 Gilberto Cabral MD, [facility] /EPI
[2020-02-05] MEDS ORDERED: LIDODERM1 EACH TOP (16:33)
[2020-02-05] MEDS ORDERED: CYCLOBENZAPRINE5 MG PO (16:33)
== END 2020-02-04 05:10 | disposition home or self-care (01) ==
LOC: ER 02:18
PROVIDERS: Emergency Medicine
DX: R07.89 Other chest pain (principal); I10 Essential (primary) hypertension; Z98.890 Other specified postprocedural states; Z79.899 Other long term (current) drug therapy; Z88.5 Allergy status to narcotic agent

== ENCOUNTER 2020-02-05 14:08 | Emergency (ER) | payer MEDICARE ==
[~2020-02-05] VITALS: Ht 165.1 cm; Wt 77.1 kg
[2020-02-05 15:29] LABS: ABSOLUTE NEUTROPHILS 6.4 thou/uL (1.4-8.2); BASOPHILS 0.4 % (0.0-2.0); EOSINOPHILS 2.8 % (0.0-3.0); HEMATOCRIT 35.9 % (42.0-52.0); HEMOGLOBIN 11.9 gm/dL (14.0-18.0); LYMPHOCYTES 16.2 % (24.0-44.0); MCH 29.4 pg (26.0-34.0); MONOCYTES 10.1 % (1.0-8.0); PLATELET COUNT 276 thou/uL (150-400); POLYS 70.5 % (36.0-66.0); RBC 4.04 mil/uL (4.50-6.00); RDW 13.9 % (10.5-14.5); WBC 9.1 thou/uL (4.0-11.0)
[2020-02-05 15:47] LABS: ANION GAP 7 mmol/L (7-16); BUN 22 mg/dL (7-18); CALCIUM 8.3 mg/dL (8.5-10.1); CHLORIDE 104 mmol/L (98-107); CO2 30 mmol/L (21-32); CREATININE 1.6 mg/dL (0.7-1.3); GLUCOSE 101 mg/dL (74-106); POTASSIUM 3.6 mmol/L (3.5-5.1); SODIUM 141 mmol/L (136-145)
[2020-02-05 15:51] LABS: ALBUMIN 3.4 g/dL (3.4-5.0); DIRECT BILIRUBIN 0.1 mg/dL (<0.1-0.2); SGOT 16 U/L (15-37); SGPT 11 U/L (30-65); TOTAL BILIRUBIN 0.5 mg/dL (0.2-1.0); TOTAL PROTEIN 7.8 g/dL (6.4-8.2); TROPONIN-I <0.06 ng/mL (<0.06)
[2020-02-05] MEDS ORDERED: LIDODERM1 EACH TOP (16:33)
[2020-02-05] MEDS ORDERED: CYCLOBENZAPRINE5 MG PO (16:33)
[2020-02-05 16:53] VITALS: BP 138/65
--- NOTE | 2020-02-06 11:17 | EKG ---
[facility] [place] [address] ELECTROCARDIOGRAM REPORT Name: KI ALCALA Room #: [facility] M.Soledad#: [id number] Admission: 02/05/20 Attend Phys: Discharge: 02/05/20 Date of : 42 Report #: [id number] THIS REPORT FOR: cc: Amita Gandhi DNP, Mary E. DNP Lundgren, Craig H. MD [facility] ~ THIS REPORT FOR: //name// [facility] ED Test Date: 2020-02-05 Test Time: 15:37:01 Pat Name: KI ALCALA Department: Room: Gender: Broadcast Chief Engineer: [facility] : 1940 Requested By: Precious Childs Order Number: [id number] MD: Gilberto Cabral Measurements Intervals [place] Rate: 62 P: -8 MI: 198 QRS: -14 QRSD: 87 T: 84 QT: 441 QTc: 448 Interpretive Statements Sinus rhythm LVH with secondary repolarization abnormality Compared to ECG 02/04/2020 02:36:37 Atrial premature complex(es) no longer present Electronically Signed On 02-06-2020 11:17:45 CDT by Gilberto Cabral [email or web address] <ELECTRONICALLY SIGNED> By: Gilberto Cabral MD, FAC 02/06/20 1117 1537 1537 Gilberto Cabral MD, [facility] /EPI
== END 2020-02-05 17:11 | disposition home or self-care (01) ==
LOC: ER 14:08
PROVIDERS: Emergency Medicine
DX: S29.012A Strain of muscle and tendon of back wall of thorax, initial encounter (principal); R07.89 Other chest pain; I10 Essential (primary) hypertension; Z98.890 Other specified postprocedural states; Z79.899 Other long term (current) drug therapy; Z88.5 Allergy status to narcotic agent; X50.0XXA Overexertion from strenuous movement or load, initial encounter; Y93.89 Activity, other specified; Y92.69 Other specified industrial and construction area as the place of occurrence of the external cause; Y99.8 Other external cause status

== ENCOUNTER 2020-05-19 06:08 | Emergency (ER) | payer MEDICARE ==
[~2020-05-19] VITALS: Ht 165.1 cm; Wt 83.9 kg
[~2020-05-19 06:08] MED LIST changes: +CYCLOBENZAPRINE5 MG PO; +LIDODERM1 EACH TOP
[2020-05-19 06:34] LABS: ABSOLUTE NEUTROPHILS 6.8 thou/uL (1.4-8.2); BASOPHILS 0.5 % (0.0-2.0); EOSINOPHILS 1.9 % (0.0-3.0); HEMATOCRIT 37.7 % (42.0-52.0); HEMOGLOBIN 12.7 gm/dL (14.0-18.0); LYMPHOCYTES 16.4 % (24.0-44.0); MCH 29.1 pg (26.0-34.0); MCHC 33.7 g/dL (28.0-37.0); MCV 86.6 fL (80.0-100.0); MONOCYTES 9.4 % (1.0-8.0); PLATELET COUNT 307 thou/uL (150-400); POLYS 71.8 % (36.0-66.0); RBC 4.35 mil/uL (4.50-6.00); RDW 15.2 % (10.5-14.5); WBC 9.4 thou/uL (4.0-11.0)
[2020-05-19 06:56] LABS: ANION GAP 10 mmol/L (7-16); BUN 23 mg/dL (7-18); CALCIUM 9.1 mg/dL (8.5-10.1); CHLORIDE 100 mmol/L (98-107); CO2 32 mmol/L (21-32); CREATININE 1.6 mg/dL (0.7-1.3); GLUCOSE 103 mg/dL (74-106); POTASSIUM 3.6 mmol/L (3.5-5.1); SODIUM 142 mmol/L (136-145)
[2020-05-19 07:06] LABS: ALBUMIN 3.9 g/dL (3.4-5.0); SGOT 20 U/L (15-37); SGPT 19 U/L (16-63); TOTAL BILIRUBIN 0.7 mg/dL (0.2-1.0); TOTAL PROTEIN 8.9 g/dL (6.4-8.2); TROPONIN-I <0.06 ng/mL (<0.06)
--- NOTE | 2020-05-19 07:19 | EKG ---
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: [employer] : 1940 Requested By: Federico Rebolledo Order Number: [id number] MD: Thiago Hennessy Measurements Intervals [place] Rate: 62 P: -57 SD: 213 QRS: -24 QRSD: 81 T: 84 QT: 403 QTc: 410 Interpretive Statements Sinus or ectopic atrial rhythm Borderline prolonged SD interval Abnormal R-wave progression, early transition LVH with secondary repolarization abnormality Compared to ECG 02/05/2020 15:37:01 Ectopic atrial rhythm now present Sinus rhythm no longer present Electronically Signed On 05-19-2020 7:18:55 WIRE FRAME DIPPER by Thiago Hennessy [email or web address] <ELECTRONICALLY SIGNED> By: Thiago Hennessy MD, [facility] 05/19/20717 3 3 Thiago Hennessy MD, [facility] /EPI
[2020-05-19 08:00] VITALS: BP 141/87
== END 2020-05-19 08:16 | disposition home or self-care (01) ==
LOC: ER 06:08
PROVIDERS: Emergency Medicine
DX: R07.9 Chest pain, unspecified (principal); I10 Essential (primary) hypertension; Z79.899 Other long term (current) drug therapy; Z88.5 Allergy status to narcotic agent

== ENCOUNTER → 2020-06-27 | Outpatient (CLI) | payer MEDICARE | LOC: SJCVCIMAG 07:40 | PROVIDERS: ATTEND Internal Medicine | DX: I08.3 Combined rheumatic disorders of mitral, aortic and tricuspid valves (principal); I11.9 Hypertensive heart disease without heart failure; I49.3 Ventricular premature depolarization; E78.5 Hyperlipidemia, unspecified; R61 Generalized hyperhidrosis; Z88.8 Allergy status to other drugs, medicaments and biological substances; Z79.899 Other long term (current) drug therapy; Z87.891 Personal history of nicotine dependence ==

== ENCOUNTER 2020-07-06 08:17 | Emergency (ER) | payer MEDICARE ==
[~2020-07-06] VITALS: Ht 165.1 cm; Wt 77.1 kg
[2020-07-06 08:22] VITALS: BP 133/57
[2020-07-06] MEDS ORDERED: CLARITIN10 M3 PO (08:54)
[2020-07-06] MEDS ORDERED: ERYTHROMYCIN E3.5 G3 OPHTHALMIC (08:54)
[2020-07-11] MEDS ORDERED: FLOMAX0.4 MG PO (10:20)
== END 2020-07-06 09:02 | disposition home or self-care (01) ==
LOC: ER 08:17
DX: H11.32 Conjunctival hemorrhage, left eye (principal); I10 Essential (primary) hypertension; Z88.5 Allergy status to narcotic agent; Z79.899 Other long term (current) drug therapy; Z98.890 Other specified postprocedural states

== ENCOUNTER → 2020-07-11 | Outpatient (CLI) | payer MEDICARE ==
[~2020-07-11] VITALS: Ht 165.1 cm; Wt 95.9 kg
[~2020-07-11] MED LIST changes: +CLARITIN10 M3 PO; +ERYTHROMYCIN E3.5 G3 OPHTHALMIC
[2020-07-11 10:10] VITALS: BP 132/61
[2020-07-11 10:14] LABS: HEMATOCRIT 36.6 % (42.0-52.0); HEMOGLOBIN 11.8 gm/dL (14.0-18.0); MCH 28.3 pg (26.0-34.0); MCHC 32.3 g/dL (28.0-37.0); MCV 87.5 fL (80.0-100.0); RBC 4.18 mil/uL (4.50-6.00); RDW 14.4 % (10.5-14.5); WBC 7.4 thou/uL (4.0-11.0)
[2020-07-11 10:24] LABS: CALCIUM 8.5 mg/dL (8.5-10.1); CREATININE 1.6 mg/dL (0.7-1.3); POTASSIUM 3.9 mmol/L (3.5-5.1)
--- NOTE | 2020-07-11 13:07 | EKG ---
[address] [address] [facility] [place] [address] ELECTROCARDIOGRAM REPORT Name: KI ALCALA JR Room #: REG NINA De Leon#: [id number] Admission: 07/11/20 Attend Phys: Corey Edwards Discharge: Date of : 42 Report #: [id number] [facility] Test Date: 2020-07-11 Test Time: 10:13:30 Pat Name: KI FREDRICK Department: Room: Gender: M Lip Reading Teacher: [place]ANCIS[place] : 1940 Requested By: Corey Edwards Order Number: [id number] MD: Thiago Hennessy Measurements Intervals [place] Rate: 59 P: -7 AR: 198 QRS: -20 QRSD: 83 T: 151 QT: 445 QTc: 441 Interpretive Statements Sinus rhythm Probable left atrial enlargement Borderline left axis deviation Abnormal R-wave progression, early transition Nonspecific T abnormalities, lateral leads Compared to ECG 05/19/2020 06:24:43 T-wave abnormality now present Ectopic atrial rhythm no longer present Left ventricular hypertrophy no longer present Early repolarization no longer present Electronically Signed On 07-11-2020 13:07:16 CDT by Thiago Hennessy [email or web address] <ELECTRONICALLY SIGNED> By: Thiago Hennessy MD, [facility] 07/11/20 1307 1013 1013 Thiago Hennessy MD, [facility] /EPI
--- NOTE | 2020-07-12 23:05 | H ---
[facility] [address] [address] HISTORY AND PHYSICAL Name: KI ALCALA JR Room #: REG BUCKYRuy De Leon#: [id number] Admission: 07/11/20 Attend Phys: Corey Edwards Discharge: Date of : 42 Report #: [id number] THIS REPORT FOR: cc: Amita Gandhi DNP, Mary E. DNP Lammoglia, Francisco J. MD ~ HISTORY OF PRESENT ILLNESS: This is a very pleasant 80-year-old gentleman with chest pains, underwent noninvasive evaluation with perfusion scanning demonstrated an area suspicious of inducible ischemia. Options were discussed. The patient's symptoms were mostly exertional in nature as per noted in the note. PHYSICAL EXAMINATION: GENERAL: Well-developed, well-nourished white male, resting comfortably, in no acute distress. HEENT: Normocephalic, atraumatic. Pupils are equal, round, reactive to light and accommodation. Extraocular muscles are intact. Sclerae and conjunctivae are anicteric. NECK: JVD is normal. Carotid upstrokes are bilaterally symmetrical. No bruits are heard. No thyromegaly. No lymphadenopathy. LUNGS: Clear to auscultation. No wheezes, rhonchi or crackles. No CVA tenderness. CARDIAC: Demonstrates a regular rhythm. Normal first and second heart sounds. No ventricular or atrial gallops, no rubs noted. No murmurs. No lifts or heaves, PMI normal. ABDOMEN: Soft, nontender, nondistended. Normal bowel sounds. EXTREMITIES: Without cyanosis, clubbing or edema. Distal pulses are intact. DTR symmetrical. NEUROLOGIC: Cranial nerves 2-12 are grossly normal and symmetrical. PSYCHIATRIC: Alert, oriented with normal affect. SKIN: Warm and dry. IMPRESSION: Chest pains, abnormal noninvasive evaluation. Options were discussed with the patient. Cardiac catheterization was agreed upon. The risks, complications and alternatives to cardiac catheterization, percutaneous revascularization, conscious sedation have been discussed with the patient; he voices understanding and wishes to proceed. <ELECTRONICALLY SIGNED> By: Corey Edwards MD 07/12/20 2305 0957 1010 Corey Edwards MD /nt
--- NOTE | 2020-07-15 23:18 | CATHLAB ---
[facility] [place] [address] [place] [address] INVASIVE PROCEDURE REPORT Name: KI ALCALA Room #: REG NINA Haley#: [id number] Admission: 07/11/20 Attend Phys: Corey Edwards Discharge: Date of : 44 Report #: [id number] THIS REPORT FOR: cc: Amita Gandhi DNP, Mary E. DNP Lammoglia, Francisco J. MD ~ APPROVED REPORT Study performed: 07/11/2020 10:41:51 Patient Details Patient Status: Out-Patient Room #: The patient is a 80 year-old male Event Personnel Corey Edwards Hardwood Floor Installer, Kusum Mejia RN RN, Koki Caballero RTR Scrub, Chavez Madsen RTR Monitor, Susi hSarpe RTR Medication Aid Procedures Performed Art Access - R femoral artery* 80905 Initial Mod Sed Same Phys/QHP Gr5y 031235 55633 Mod Sed Same Phys/QHP Ea 739940 Left Heart Cath w/or w/o Coronaries [id number] [facility] Hemostasis w/ Mynx,supervision of conscious sedation Indication Positive stress test, Chest pain Procedure Narrative The Right Groin^ was infiltrated with 1% Lidocaine subcutaneous anesthesia. A PINNACLE 6FR Sheath #[id number] sheath was inserted into the RFA^. Coronary angiography was performed using coronary diagnostic catheters. The right coronary system was accessed and visualized with a 6FR JR4 catheter. The left coronary system was accessed and visualized with a 6FR JL4 catheter. The left ventricle was accessed and visualized with a 6FR PIGTAIL catheter. Left ventricular/Aortic Valve gradient assessed via catheter pullback. Closure device was deployed with a 6 Fr MYNXGRIP 6/7F #[id number]. The patient tolerated the procedure well and there were no complications associated with the procedure. There was no hematoma. Intraoperative Conscious Sedation Sedation start time: 1132 Case end Time: 1210 [facility] [place] [address] INVASIVE PROCEDURE REPORT Name: KI ALCALA JR Room #: REG Haley#: [id number] Admission: 07/11/20 Attend Phys: Corey Ortega Discharge: Date of : 44 Report #: [id number] Versed 2 mg Fluoro Time: 2.58 minutes Dose: DAP 4061.80 cGycm2 590 mGy Contrast Type and Amount: Visipaque 110 ml Coronary Angiography The patient's coronary anatomy is right dominant. Diagnostic Cath Left Main large caliber vessel of normal origin bifurcates into Left Anterior Descending and Left Circumflex vessel. There is a proximal tapering of less than 50% but otherwise no significant lesions. There is evidence of epicardial calcifications on flourouscopic visualization. LAD Moderate caliber type II vessel with a tourtous course as it proceeds to terminate as a small caliber bifurcating vessel. The proximal and portions of the initial mid LAD are heavily calcified on fouroscopic visualization, Prior to a small first diagonal there is an eccentric lesion 50-60%. The vessel continues through tourtuous curve with another 60% or so lesion after which there is a lesion of at least 80%appears to be a 75% lesion prior to an abrupt tortuous bend. The LAD now rapidly tapers to a small ( <1.5mm ) vessel and in the distal segment of the mid-lad there is a lesion of at least 80%. The artery then continues to its terminus Diagonal 1 diminuitive caliber vessel Diagonal 2 diminuitive caliber vessel Circumflex small caliber vessel heavily calcified on flouroscopy. it gives to an early obtuse marginal vessel with a proximal lesion of about 50%. it then continues in the AV groove posteriorly where there is a an eccentric lesion greater than 75% and proceeds giving rise to several posterior wall branches that are diffusely diseased. At the point of this lesion the LCx appears to be approx 1.5mm in diameter OM1 small caliber diffusely diseased vessel with a proximal 50% lesion then continues with the presence of a focal nonobstructive plaque as it courses towards the lateral aspect of the apex. distal lesion is noted in a dimuitive caliber distal portion OM2 small diffusely diseased vessel Right Coronary Moderate caliber dominant vessel with numerous lesions present of at least 50% in the proximal and mid sections. there is a focal eccentric lesion that appears to be about 70% prior to the crux of the heart. The posterior descending artery then arises as the rca proper continues a several posterior wall branches R PDA Smaall caliber vessel rapidly tapers with moderate diffus plaqueing [facility] [address] [place] [address] INVASIVE PROCEDURE REPORT Name: KI ALCALA JR Room #: BRANDAN De Leon#: [id number] Admission: 07/11/20 Attend Phys: Corey Ortega Discharge: Date of : 44 Report #: [id number] Left Ventriculography Left Ventriculography was not performed. Hemodynamics The aortic pressure is 154/62 mmHg with a mean of 99 mmHg. The left ventricular pressure is 116/9 mmHg with a mean of mmHg. The left ventricular end diastolic pressure is 26 mmHg. Pullback from the left ventricle to the aorta revealed no gradient across the aortic valve. Conclusion 1. 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 Abnormal hemodynamics with elevated LVEDP Recommendations Aggressive Medical Therapy Medical Therapy will optimize medical management and discuss options with patient. PCI not likely to provide good exterminator helper termite results and lifestyle improvements but not ideal targets for suregy. May need aggressive medical treatment as best exterminator helper termite results <ELECTRONICALLY SIGNED> By: Corey Edwards MD 07/15/202317 17 17 Corey Edwards MD /INF
== END | disposition home or self-care (01) ==
LOC: CATH 06:45
PROVIDERS: ATTEND Internal Medicine
DX: R07.9 Chest pain, unspecified (principal); R94.39 Abnormal result of other cardiovascular function study; I25.10 Atherosclerotic heart disease of native coronary artery without angina pectoris; I10 Essential (primary) hypertension; N40.0 Benign prostatic hyperplasia without lower urinary tract symptoms; I73.9 Peripheral vascular disease, unspecified; M10.9 Gout, unspecified; K21.9 Gastro-esophageal reflux disease without esophagitis; Z98.890 Other specified postprocedural states; Z79.899 Other long term (current) drug therapy; Z87.891 Personal history of nicotine dependence

== ENCOUNTER 2020-08-01 12:54 | Emergency (ER) | payer MEDICARE ==
[~2020-08-01] VITALS: Ht 165.1 cm; Wt 93.0 kg
[2020-08-01 13:33] LABS: ABSOLUTE NEUTROPHILS 3.8 thou/uL (1.4-8.2); EOSINOPHILS 3.3 % (0.0-3.0); HEMATOCRIT 36.9 % (42.0-52.0); HEMOGLOBIN 12.2 gm/dL (14.0-18.0); LYMPHOCYTES 24.4 % (24.0-44.0); MCH 28.4 pg (26.0-34.0); MCHC 32.9 g/dL (28.0-37.0); MCV 86.4 fL (80.0-100.0); MONOCYTES 9.3 % (1.0-8.0); PLATELET COUNT 291 thou/uL (150-400); RBC 4.27 mil/uL (4.50-6.00); RDW 14.5 % (10.5-14.5); WBC 6.2 thou/uL (4.0-11.0)
[2020-08-01 13:46] LABS: ANION GAP 8 mmol/L (7-16); BUN 25 mg/dL (7-18); CALCIUM 8.6 mg/dL (8.5-10.1); CHLORIDE 104 mmol/L (98-107); CO2 29 mmol/L (21-32); GLUCOSE 122 mg/dL (74-106); POTASSIUM 3.7 mmol/L (3.5-5.1); SODIUM 141 mmol/L (136-145)
[2020-08-01 13:57] LABS: TROPONIN-I <0.06 ng/mL (<0.06)
--- NOTE | 2020-08-01 17:31 | EKG ---
[address] [place] [address] ELECTROCARDIOGRAM REPORT Name: FREDRICKKI Room #: REG DORIE Randy#: [id number] Admission: 08/01/20 Attend Phys: Discharge: Date of : 44 Report #: [id number] [facility] ED Test Date: 2020-08-01 Test Time: 12:58:52 Pat Name: KI ALCALA Department: Room: Gender: M Supervisor Remelt: VIDHYA : 1940 Requested By: Lucien Dalton Order Number: [id number] MD: Gilberto Cabral Measurements Intervals [place] Rate: 65 P: -43 MT: 177 QRS: -13 QRSD: 82 T: 7 QT: 429 QTc: 447 Interpretive Statements Sinus rhythm Abnormal R-wave progression, early transition Nonspecific ST and T wave abnormality Baseline wander in lead(s) I,III,aVR,aVL Compared to ECG 07/11/2020 10:13:[address] and T wave abnormality is now present Electronically Signed On 08-01-2020 17:31:08 CDT by Gilberto Cabral [email or web address] <ELECTRONICALLY SIGNED> By: Gilberto Cabral MD, [facility] 08/01/20 1731 [id number] [id number] Gilberto Cabral MD, [facility] /EPI
[2020-08-01 17:39] VITALS: BP 121/69
== END 2020-08-01 17:39 | disposition home or self-care (01) ==
LOC: ER 12:54
PROVIDERS: Nurse Practitioner
DX: R42 Dizziness and giddiness (principal); R07.89 Other chest pain; I10 Essential (primary) hypertension; I25.10 Atherosclerotic heart disease of native coronary artery without angina pectoris; Z79.899 Other long term (current) drug therapy; Z88.5 Allergy status to narcotic agent

== ENCOUNTER 2021-01-28 12:50 | Emergency (ER) | payer MEDICARE ==
[~2021-01-28] VITALS: Ht 165.1 cm; Wt 74.8 kg
[2021-01-28] MEDS ORDERED: NITROSTAT0.3 MG SUBLING (13:10)
[2021-01-28] MEDS ORDERED: ROSUVASTATIN CA10 MG PO (13:11)
[2021-01-28] MEDS ORDERED: HYDRALAZINE 2525 MG PO (13:12)
[2021-01-28] MEDS ORDERED: NIFEDIPINE ER30 MG PO (13:13)
[2021-01-28] MEDS ORDERED: FEBUXOSTAT40 MG PO (13:13)
[2021-01-28] MEDS ORDERED: IMDUR 30 MG TAB30 M1 PO (13:14)
[2021-01-28 13:30] LABS: ABSOLUTE NEUTROPHILS 4.6 thou/uL (1.4-8.2); BASOPHILS 0.4 % (0.0-2.0); HEMATOCRIT 34.6 % (42.0-52.0); HEMOGLOBIN 11.6 gm/dL (14.0-18.0); LYMPHOCYTES 24.5 % (24.0-44.0); MCH 29.8 pg (26.0-34.0); MCHC 33.5 g/dL (28.0-37.0); MONOCYTES 10.3 % (1.0-8.0); PLATELET COUNT 286 thou/uL (150-400); POLYS 60.8 % (36.0-66.0); RBC 3.89 mil/uL (4.50-6.00); RDW 14.6 % (10.5-14.5); WBC 7.6 thou/uL (4.0-11.0)
[2021-01-28 13:34] LABS: CALCIUM 8.3 mg/dL (8.5-10.1); CREATININE 1.7 mg/dL (0.7-1.3); POTASSIUM 4.1 mmol/L (3.5-5.1)
[2021-01-28 13:44] LABS: ALBUMIN 3.3 g/dL (3.4-5.0); TOTAL BILIRUBIN 0.5 mg/dL (0.2-1.0); TOTAL PROTEIN 7.6 g/dL (6.4-8.2)
[2021-01-28] MEDS ORDERED: IMDUR 60 MG TAB60 M1 PO (16:11)
[2021-01-28 16:33] VITALS: BP 132/71
--- NOTE | 2021-01-29 12:05 | EKG ---
[facility] [place] [address] ELECTROCARDIOGRAM REPORT Name: KI ALCALA Room #: CHANDLER [place]#: [id number] Admission: 01/28/21 Attend Phys: Discharge: 01/28/21 Date of : 44 Report #: [id number] [facility] ED Test Date: 2021-01-28 Test Time: 12:54:34 Pat Name: KI ALCALA Department: Room: Gender: M Physician Relations Manager: eligio : 1940 Requested By: Precious Childs Order Number: [id number] MD: Thiago Hennessy Measurements Intervals [place] Rate: 55 P: -36 DC: 210 QRS: -13 QRSD: 88 T: 80 QT: 455 QTc: 436 Interpretive Statements Sinus rhythm Atrial premature complex Compared to ECG 08/01/2020 12:58:52 Atrial premature complex(es) now present ST (T wave) deviation no longer present Electronically Signed On 01-29-2021 12:05:21 CDT by Thiago Hennessy [email or web address] <ELECTRONICALLY SIGNED> By: Thiago Hennessy MD, [facility] 01/29/21 1205 1254 1254 Thiago Hennessy MD, FAC /EPI
== END 2021-01-28 16:38 | disposition home or self-care (01) ==
LOC: ER 12:50
PROVIDERS: Emergency Medicine
DX: R07.89 Other chest pain (principal); R20.8 Other disturbances of skin sensation; I10 Essential (primary) hypertension; M10.9 Gout, unspecified; Z88.5 Allergy status to narcotic agent; Z79.899 Other long term (current) drug therapy; Z98.890 Other specified postprocedural states

== ENCOUNTER → 2021-02-16 | Outpatient (CLI) | payer MEDICARE ==
[~2021-02-16] MED LIST changes: +FEBUXOSTAT40 MG PO; +IMDUR 30 MG TAB30 M1 PO; +IMDUR 60 MG TAB60 M1 PO; +NIFEDIPINE ER30 MG PO; +NITROSTAT0.3 MG SUBLING; +ROSUVASTATIN CA10 MG PO
== END ==
LOC: SJCVCIMAG 08:39
PROVIDERS: ATTEND Internal Medicine
DX: I70.203 Unspecified atherosclerosis of native arteries of extremities, bilateral legs (principal); I70.223 Atherosclerosis of native arteries of extremities with rest pain, bilateral legs; I25.10 Atherosclerotic heart disease of native coronary artery without angina pectoris; E78.5 Hyperlipidemia, unspecified; I50.9 Heart failure, unspecified; N40.0 Benign prostatic hyperplasia without lower urinary tract symptoms; M10.9 Gout, unspecified; I11.0 Hypertensive heart disease with heart failure; Z88.5 Allergy status to narcotic agent; Z87.891 Personal history of nicotine dependence

== ENCOUNTER → 2021-02-22 | Outpatient (CLI) | payer MEDICARE ==
[~2021-02-22] VITALS: Ht 165.1 cm; Wt 88.1 kg
[~2021-02-22] MED LIST changes: +SINGULAIR 10 MG10 MG PO
[2021-02-22 12:45] VITALS: BP 144/78
--- NOTE | 2021-02-22 13:06 | NUR ---
Pain Clinic Assessment: 1. History of Osteoarthritis: SHOULDERS KNEES History of Rheumatoid Arthritis: Not Applicable 2. Height: 5 ft. 5 in. 165.1 cm. Weight: 194.2 lb. oz. 88.089 kg. Patient's BMI: 32.3 3. Vital Signs: BP: 144/78 Pulse: 58 Resp: 16 Temp: 02 Sat: 100 ECG Mon: 4. Pain Intensity: 10 5. Fall Risk: Dizziness: Y Needs help standing or walking: Y Fallen in the last 3 months: N Fall risk comments: 6. Patient on Blood Thinner: None 7. History of Hypertension: Y 8. Opioid Therapy greater than 6 weeks: N Opiate Contract Signed: 9. Risk Assessment Tool Provided: LOW RISK 0/3 10. Functional Assessment Tool: 58/70 11. Recreational Drug Use: Never Drug Type: Tobacco Use: Former Smoker Tobacco Type: Amount or Packs/day: How Many Years: Alcohol Use: No Frequency: Quant:
== END ==
LOC: PAIN 09:38
PROVIDERS: ATTEND Anesthesiology Pain Medicine
DX: G89.29 Other chronic pain (principal); M54.16 Radiculopathy, lumbar region; M48.061 Spinal stenosis, lumbar region without neurogenic claudication; M48.062 Spinal stenosis, lumbar region with neurogenic claudication; Z88.8 Allergy status to other drugs, medicaments and biological substances; Z79.899 Other long term (current) drug therapy

== ENCOUNTER → 2021-03-07 | Outpatient (CLI) | payer MEDICARE | LOC: SJCVC 10:57 | PROVIDERS: ATTEND Nuclear Medicine Nuclear Cardiology | DX: I73.9 Peripheral vascular disease, unspecified (principal); I25.10 Atherosclerotic heart disease of native coronary artery without angina pectoris; I11.0 Hypertensive heart disease with heart failure; I50.30 Unspecified diastolic (congestive) heart failure; E78.00 Pure hypercholesterolemia, unspecified; I77.9 Disorder of arteries and arterioles, unspecified; R07.9 Chest pain, unspecified; F17.210 Nicotine dependence, cigarettes, uncomplicated; Z88.8 Allergy status to other drugs, medicaments and biological substances; Z79.82 Long term (current) use of aspirin; Z79.899 Other long term (current) drug therapy; Z82.49 Family history of ischemic heart disease and other diseases of the circulatory system ==

== ENCOUNTER → 2021-03-08 | Outpatient (CLI) | payer MEDICARE ==
[~2021-03-08] VITALS: Ht 152.4 cm; Wt 86.6 kg
[2021-03-08 12:52] VITALS: BP 149/76
--- NOTE | 2021-03-08 12:57 | NUR ---
Pain Clinic Assessment: 1. History of Osteoarthritis: SHOULDERS KNEES History of Rheumatoid Arthritis: Not Applicable 2. Height: 5 ft. 5 in. 152.4 cm. Weight: 191.0 lb. oz. 86.637 kg. Patient's BMI: 37.3 3. Vital Signs: BP: 149/76 Pulse: 64 Resp: 16 Temp: 02 Sat: 100 ECG Mon: 4. Pain Intensity: 10 5. Fall Risk: Dizziness: Y Needs help standing or walking: N Fallen in the last 3 months: N Fall risk comments: 6. Patient on Blood Thinner: None 7. History of Hypertension: Y 8. Opioid Therapy greater than 6 weeks: N Opiate Contract Signed: 9. Risk Assessment Tool Provided: LOW RISK 0/3 10. Functional Assessment Tool: 58/70 11. Recreational Drug Use: Never Drug Type: Tobacco Use: Former Smoker Tobacco Type: Amount or Packs/day: How Many Years: Alcohol Use: No Frequency: Quant:
== END | disposition home or self-care (01) ==
LOC: PAIN 08:02
PROVIDERS: ATTEND Anesthesiology Pain Medicine
DX: M54.16 Radiculopathy, lumbar region (principal); M48.061 Spinal stenosis, lumbar region without neurogenic claudication; G89.29 Other chronic pain; I11.0 Hypertensive heart disease with heart failure; I50.9 Heart failure, unspecified; M19.90 Unspecified osteoarthritis, unspecified site; Z98.890 Other specified postprocedural states; Z79.899 Other long term (current) drug therapy; Z87.891 Personal history of nicotine dependence; Z88.8 Allergy status to other drugs, medicaments and biological substances

== ENCOUNTER → 2021-04-18 | Outpatient (CLI) | payer MEDICARE | LOC: SJCVCIMAG 08:50 | PROVIDERS: ATTEND Nuclear Medicine Nuclear Cardiology | DX: I65.23 Occlusion and stenosis of bilateral carotid arteries (principal); I50.9 Heart failure, unspecified; I25.10 Atherosclerotic heart disease of native coronary artery without angina pectoris; E78.5 Hyperlipidemia, unspecified; I11.0 Hypertensive heart disease with heart failure; Z95.818 Presence of other cardiac implants and grafts; Z87.891 Personal history of nicotine dependence; Z88.5 Allergy status to narcotic agent; Z79.82 Long term (current) use of aspirin; Z79.899 Other long term (current) drug therapy ==

== ENCOUNTER → 2021-05-30 | Outpatient (CLI) | payer MEDICARE | LOC: SJCVC 13:17 | PROVIDERS: ATTEND Internal Medicine | DX: I11.0 Hypertensive heart disease with heart failure (principal); I50.30 Unspecified diastolic (congestive) heart failure; I25.10 Atherosclerotic heart disease of native coronary artery without angina pectoris; R42 Dizziness and giddiness; Z88.5 Allergy status to narcotic agent; Z79.82 Long term (current) use of aspirin; Z79.899 Other long term (current) drug therapy; Z98.890 Other specified postprocedural states; Z87.891 Personal history of nicotine dependence ==

== ENCOUNTER 2021-06-16 11:48 | Emergency (ER) | payer MEDICARE ==
[~2021-06-16] VITALS: Ht 165.1 cm; Wt 76.2 kg
[2021-06-16 12:37] LABS: ABSOLUTE NEUTROPHILS 6.7 thou/uL (1.4-8.2); BASOPHILS 0.3 % (0.0-2.0); EOSINOPHILS 0.3 % (0.0-3.0); HEMATOCRIT 33.7 % (42.0-52.0); HEMOGLOBIN 11.3 gm/dL (14.0-18.0); LYMPHOCYTES 16.2 % (24.0-44.0); MCH 29.2 pg (26.0-34.0); MCHC 33.4 g/dL (28.0-37.0); MCV 87.4 fL (80.0-100.0); MONOCYTES 12.4 % (1.0-8.0); PLATELET COUNT 259 thou/uL (150-400); POLYS 70.8 % (36.0-66.0); RBC 3.86 mil/uL (4.50-6.00); RDW 14.4 % (10.5-14.5); WBC 9.5 thou/uL (4.0-11.0)
[2021-06-16 12:55] LABS: CREATININE 1.6 mg/dL (0.7-1.3); POTASSIUM 3.7 mmol/L (3.5-5.1)
[2021-06-16] MEDS ORDERED: NAPROSYN500 MG PO (14:34)
[2021-06-16] MEDS ORDERED: FLEXERIL PO (14:34)
[2021-06-16 15:14] VITALS: BP 159/77
--- NOTE | 2021-06-17 09:56 | EKG ---
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 : 1940 Requested By: Constantine Rollins Order Number: [id number] MD: Jose Griffiths Measurements Intervals [place] Rate: 86 P: -33 [place]: 175 QRS: -31 QRSD: 81 T: 63 QT: 360 QTc: 431 Interpretive Statements Sinus rhythm Probable left atrial enlargement Left axis deviation Borderline repolarization abnormality Compared to ECG 01/28/2021 12:54:34 Left-axis deviation now present Atrial premature complex(es) no longer present Electronically Signed On 06-17-2021 9:55:57 [employer] COMP[employer]OLLER by Jose Griffiths [email or web address] <ELECTRONICALLY SIGNED> By: Jose Griffiths MD 06/17/21 0955 D: [id number] Jose Griffiths MD /SHANEL
== END 2021-06-16 15:00 | disposition home or self-care (01) ==
LOC: ER 11:48
PROVIDERS: Emergency Medicine
DX: M54.2 Cervicalgia (principal); M54.6 Pain in thoracic spine; R07.89 Other chest pain; I10 Essential (primary) hypertension; I25.10 Atherosclerotic heart disease of native coronary artery without angina pectoris; Z98.890 Other specified postprocedural states; Z79.899 Other long term (current) drug therapy; Z88.5 Allergy status to narcotic agent